=== PATIENT | male | born 2000 | race Caucasian/White ===

== ENCOUNTER 2020-08-16 02:57 | Inpatient (IN) | payer BC, OTHER ==
[~2020-08-16] VITALS: Ht 190.5 cm; Wt 83.5 kg
[2020-08-16] VITALS (25 sets, daily range): BP systolic 93–119; BP diastolic 35–58
--- NOTE | 2020-08-16 02:57 | NUR ---
TO ER BED 9 BIB EMS C/O POSSIBLE OVERDOSE. NARCAN 4MG IVP GIVEN BY EMS GEOLOGY PROFESSOR. (-) GAG REFLEX, ALTERED, UNRESPONSIVE, NO RESPONSE TO PAINFUL STIMULI. PLACE PT ON CARDIAC MONITORING, CONTINUOUS POX, O2 SAT NOTED AT 92% RA WITH (-) GAG REFLEX, PUPILS PERRLA. ER MD AT BEDSIDE TO EVAL PT WITH ORDER TO SET UP PT FOR INTUBATION. SL 18G TO LAC GEOLOGY PROFESSOR. WILL CARRY OUT ORDERS.
--- NOTE | 2020-08-16 03:14 | NUR ---
PT INTUBATED BY ER MD DAVID Yang WITH ET-TUBE 7.0 FR, 22CM AT THE LIP LINE, (+) COLOR CHANGE ON THE CO2 DETECTOR, BILATERAL EQUAL BREATH SOUND ON AUSCULTATION. RT TO PLACE PT ON VENT SETTING AC-14, TV-550, FIO2-80%, PEEP-5 PER ER ORDER. WILL CONTINUE TO MONITOR PT CLOSELY.
[2020-08-16] MEDS ORDERED: PROPOFOL 100 ML ONE ×2 (03:17→07:26)
[2020-08-16] MEDS ORDERED: SUCCINYLCHOLINE CHLORIDE 20 MG/ML VIAL IV ONE (03:30)
[2020-08-16] MEDS ORDERED: ETOMIDATE 2 MG/ML VIAL IV ONE (03:30)
[2020-08-16] MEDS ORDERED: IV NS 0.9% 1,000 ML BAG IV ONE (03:30)
[2020-08-16 03:36] LABS: BASOPHILS # (AUTO) 0.1 /CMM (0.0-0.2); BASOPHILS % (AUTO) 0.9 % (0.0-2.0); EOSINOPHILS % (AUTO) 0.4 % (0.0-6.0); HEMATOCRIT 40 % (39-51); HEMOGLOBIN 13.8 g/dL (13.5-17.5); LYMPHOCYTES # (AUTO) 1.9 /CMM (0.8-4.8); LYMPHOCYTES % (AUTO) 17.6 % (20.0-44.0); MEAN CORPUSCULAR HGB CONC 34 g/dl (31.0-36.0); MEAN CORPUSCULAR VOLUME 98 fL (80-96); MONOCYTES # (AUTO) 1.1 /CMM (0.1-1.30); MONOCYTES % (AUTO) 9.8 % (2.0-12.0); NEUTROPHILS # (AUTO) 7.7 /CMM (1.8-8.9); NEUTROPHILS % (AUTO) 71.3 % (43.0-81.0); PLATELET COUNT (AUTO) 236 /CMM (150-450); RED BLOOD CELL COUNT(AUTO) 4.14 MIL/uL (4.5-6.0); WHITE BLOOD COUNT (AUTO) 10.9 K/uL (4.3-11.0)
--- NOTE | 2020-08-16 03:56 | NUR ---
PT TOLERATING CURRENT VENT SETTING, NO ACUTE DISTRESS NOTED, RESP EVEN AND UNLABORED. WILL CONTINUE TO MONITOR PT CLOSELY.
[2020-08-16 04:14] LABS: APPEARANCE,URINE CLEAR (CLEAR); BILIRUBIN,URINE NEGATIVE (NEGATIVE); BLOOD, URINE LARGE Ery/uL (NEGATIVE); COLOR,URINE YELLOW (YELLOW); KETONES,URINE 40 (NEGATIVE); LEUKOCYTE ESTERASE ,URINE NEGATIVE (NEGATIVE); NITRITE, URINE NEGATIVE (NEGATIVE); PH,URINE 5.5 (5.0-8.0); PROTEIN,URINE NEGATIVE (NEGATIVE); UGLUCOSE NEGATIVE (NEGATIVE)
[2020-08-16 04:25] LABS: ABG BASE EXCESS -3.7 mmol/L; ABG OXYGEN SATURATION 99.5 % (92.0-98.5); ABG PCO2 32.2 mmHg (35.0-45.0); ABG PH 7.409 (7.350-7.450); ABG PO2 198.5 mmHg (75.0-100.0); AaDO2 338.1 mmHg; COHb 1.4 % (0.5-1.5); MetHb 0.3 % (0.0-1.5); O2Hb 97.8 % (94.0-97.0); PEEP,BG 5 cm H2O; SITE, ABG Left Radial; VT, ABG 550 mL
--- NOTE | 2020-08-16 04:31 | NUR ---
KEN NARANJO, GLOBAL COMPENSATION ANALYST OF REHAB PER GLOBAL COMPENSATION ANALYST PT'S NAME IS KATIA QUIGLEY
--- NOTE | 2020-08-16 04:54 | NUR ---
BROUGHT TO CT
[2020-08-16 05:14] LABS: ALANINE AMINOTRANSFERASE 483 U/L (12-78); ALBUMIN 4.4 g/dL (3.4-5.0); ALKALINE PHOSPHATASE 80 U/L (46-116); ASPARTATE AMINOTRANSFERASE 1191 U/L (15-37); BILIRUBIN,DIRECT 0.1 mg/dL (0.0-0.2); BILIRUBIN,TOTAL 0.7 mg/dL (0.2-1.0); CALCIUM, SERUM 8.9 mg/dL (8.5-10.1); CARBON DIOXIDE 21 mmol/L (21-32); CHLORIDE 94 mmol/L (98-107); CREATININE 1.2 mg/dL (0.6-1.3); GLUCOSE 104 mg/dL (74-106); POTASSIUM 3.5 mmol/L (3.5-5.1); SODIUM SERUM 135 mmol/L (136-145); TOTAL PROTEIN, SERUM 7.7 g/dL (6.4-8.2); UREA NITROGEN, BLOOD 15 mg/dL (7-18)
--- NOTE | 2020-08-16 05:19 | NUR ---
BROUGHT BACK FROM CT.
[2020-08-16 05:37] LABS: ACETAMINOPHEN < 2 ug/ml (10-30); ALCOHOL, BLOOD < 2 mg/dL (0-0); SALICYLATE 2.7 mg/dL (2.8-20.0)
[2020-08-16] MEDS ORDERED: PROPOFOL 100 ML IV PRN ×2 (07:00→20:30)
--- NOTE | 2020-08-16 07:48 | NUR ---
PATIENT'S TOLERATING CURRENT VENT SETTINGS. NEEDS ATTENDED. SOFT RESTRAINTS IN PLACED.
--- NOTE | 2020-08-16 08:16 | NUR ---
LAB CALLED COVID-19 NEG (-)
--- NOTE | 2020-08-16 08:40 | NUR ---
REPORT GIVEN TO CRISTIAN RN FOR SHARON.
--- NOTE | 2020-08-16 08:58 | NUR ---
PATIENT TRANSFERRED TO ROOM 253 VIA ACLS PROTOCOL. PATIENT ON CONTINUOUS DRIP OF PROPOFOL. VITALS STABLE.
[2020-08-16] MEDS ORDERED: ONDANSETRON HCL/PF 4 MG/2 ML VIAL IVP PRN (09:00)
[2020-08-16] MEDS ORDERED: Z GUARD REMEDY 2 OZ OINT TP PRN (09:00)
[2020-08-16] MEDS ORDERED: MAGNESIUM HYDROXIDE 30 ML UDC PO PRN (09:00)
[2020-08-16] MEDS ORDERED: MAG HYDROX/AL HYDROX/SIMETH 30 ML UDC PO PRN (09:00)
--- NOTE | 2020-08-16 09:00 | NUR ---
rn notes received patient from er coming in due to altered mental status. drug test positive of cannabis and amphetamine. orally [facility] er[facility]. patient agitated despite with ongoing Diprivan at 50mcg/kg/min. [place] [facility] [place] the monitor. assessment done and noted. made clean and comfortable in bed. restraints placed in. safety measures put in place. hob elevated to 30 degree. call light placed within reach will continue to monitor patient accordingly while awaiting admission orders
--- NOTE | 2020-08-16 09:18 | NUR ---
PER PIECE GOODS CLERK, PATIENT'S NAME IS SORAIDA MONTALVO : [address] ELEVATOR CONDUCTOR'S CONTACT INFO: [phone] KEN HOLDER
[2020-08-16] MEDS ORDERED: PROPOFOL 10MG/ML 50ML 50 ML IV PRN (09:30)
[2020-08-16 09:38] LABS: BASOPHILS # (AUTO) 0.1 /CMM (0.0-0.2); BASOPHILS % (AUTO) 0.8 % (0.0-2.0); EOSINOPHILS % (AUTO) 0.6 % (0.0-6.0); HEMATOCRIT 41 % (39-51); HEMOGLOBIN 13.9 g/dL (13.5-17.5); LYMPHOCYTES # (AUTO) 2.3 /CMM (0.8-4.8); LYMPHOCYTES % (AUTO) 17.4 % (20.0-44.0); MEAN CORPUSCULAR HGB CONC 34 g/dl (31.0-36.0); MEAN CORPUSCULAR VOLUME 98 fL (80-96); MONOCYTES # (AUTO) 1.4 /CMM (0.1-1.30); MONOCYTES % (AUTO) 10.7 % (2.0-12.0); NEUTROPHILS # (AUTO) 9.5 /CMM (1.8-8.9); NEUTROPHILS % (AUTO) 70.5 % (43.0-81.0); PLATELET COUNT (AUTO) 246 /CMM (150-450); WHITE BLOOD COUNT (AUTO) 13.5 K/uL (4.3-11.0)
[2020-08-16] MEDS: PROPOFOL 10MG/ML 50ML 50 ML IV PRN ×7 (09:55→19:23)
[2020-08-16] MEDS: IV NS 0.9% 1,000 ML IV PRN ×2 (09:55→18:36)
[2020-08-16 09:59] LABS: ALBUMIN 4.3 g/dL (3.4-5.0); BILIRUBIN,TOTAL 0.8 mg/dL (0.2-1.0); CALCIUM, SERUM 8.8 mg/dL (8.5-10.1); POTASSIUM 3.6 mmol/L (3.5-5.1); TOTAL PROTEIN, SERUM 7.7 g/dL (6.4-8.2)
--- NOTE | 2020-08-16 10:00 | NUR ---
rn notes Dr. Spence at bedside to see and examine patient. with orders " mag give propoofol to max dose to keep patient fully intubated". order noted and carried out
--- NOTE | 2020-08-16 10:42 | NUR ---
RT PATIENT REC'D TRANSFER FROM ER. PATIENT ORALLY INTUBATED ON [facility] VENT WITH ORDERED SETTINGS SEUN WELL. PATIENT SEDATED AND APPEARS COMFORTABLE. FIO2 TITRATED TO 50%. ALARMS CHECKED + AUDIBLE. YOUNGU BAG AT HOB. Addendum: 08/16/20 at 1652 by MIHAELA ROOT RT Amended: Links added.
[2020-08-16] MEDS: ENOXAPARIN SODIUM 40 MG/0.4 ML DISP.SYRIN SQ SCH (10:47)
[2020-08-16] MEDS ORDERED: LORAZEPAM INJ 2 MG/ML VIAL IV PRN (14:30)
--- NOTE | 2020-08-16 16:00 | NUR ---
rn notes patient noted with fever at 103, tylenol prn given vvia ngt. cooling measures rendered. will continue to monitor patient accordingly
--- NOTE | 2020-08-16 16:56 | NUR ---
rn notes informed Dr. Velazquez on troponin level from 0.713 t0 0.44. no new orders obtained at this time
--- NOTE | 2020-08-16 19:10 | NUR ---
RN OPENING NOTES RECEIVED PT ON BED SEDATED ON ETT/VENT SETTING ORDERED SPO2 94%, BEDSIDE MONITOR READS SINUS TACHY 115 PT HAVE OGT CLAMPED ON PLACED AND CHECKED, PT HAVE IVF # 18 ON LAC WITH ONGOING DIPRIVAN @ 100MCG/KG/MIN PER DOCTORS ORDER AND NS @ 125ML/HR INFUSING WELL, PT HAVE DORAN CATHETER DRAINING TEA COLORED URINE WITH SEDIMENTS, WITH BILATERAL WRIT RESTRAINTS CIRCULATION WAS CHECKED, SAFETY MEASURE OBSERVED BED ON LOWEST POSITION AND LOCKED SIDE RAILS UP WILL CONT TO MONITOR
--- NOTE | 2020-08-16 19:30 | NUR ---
rn notes endorsed for continuity of care. patient still sedated with diprivan at 100mcg/mg/min. not on any cardiorespiratory distress. tolerating current vent settings with good saturation level. blood pressure within normal range. endorsed to incoming shift regarding patient current temperature and to monitor closely
[2020-08-16] MEDS: ACETAMINOPHEN 325 MG TABLET PO PRN (19:41)
[2020-08-16] MEDS: PROPOFOL 100 ML IV PRN ×3 (20:18→23:44)
--- NOTE | 2020-08-16 22:11 | NUR ---
RN NOTES TEMP 101.4 COOLING MEASURE CONT, WILL CONT TO MONITOR
--- NOTE | 2020-08-16 22:15 | NUR ---
RN NOTES PT SPO2 GOES TO 86-88% SUCTIONING WAS DONE BUT NO CHANGES ON SPO2 RT MADE AWARE INCREASE FIO2 ON VENT TO 50% WILL CONT TO MONITOR
--- NOTE | 2020-08-16 22:44 | NUR ---
RN NOTES REPORTED TO ONCALL MS GALINA MELLO HEAD OF PRECISION TARGETING ABOUT THE TEMP OF THE PATIENT SHE MADE AN ORDER FOR CBC, BLOOD CULTURE AND LACTIC ACID, NOTED AND CARRIED OUT
--- NOTE | 2020-08-16 23:10 | NUR ---
RN NOTES TEMP RECHECKED 100.7 COOLING MEASURE CONT WILL CONT TO MONITOR THE PT
--- NOTE | 2020-08-16 23:46 | NUR ---
RN NOTES REPORTED TO RT THAT SPO2 OF THE PT IS ON 90-91% ONLY DESPITE SUCTIONING RT INCREASE PT FIO2 VENT SETTING TO 60% WILL CONT TO MONITOR THE PT
[2020-08-17] VITALS (41 sets, daily range): BP systolic 91–148; BP diastolic 34–66
[2020-08-17] MEDS: ACETAMINOPHEN 325 MG TABLET PO PRN ×2 (00:16→12:54)
[2020-08-17 00:22] LABS: BASOPHILS % (AUTO) 0.3 % (0.0-2.0); HEMATOCRIT 39 % (39-51); HEMOGLOBIN 13.5 g/dL (13.5-17.5); LYMPHOCYTES # (AUTO) 0.2 /CMM (0.8-4.8); LYMPHOCYTES % (AUTO) 2.5 % (20.0-44.0); MEAN CORPUSCULAR HGB CONC 34 g/dl (31.0-36.0); MEAN CORPUSCULAR VOLUME 97 fL (80-96); MONOCYTES # (AUTO) 0.8 /CMM (0.1-1.30); MONOCYTES % (AUTO) 8.5 % (2.0-12.0); NEUTROPHILS # (AUTO) 8.3 /CMM (1.8-8.9); NEUTROPHILS % (AUTO) 88.7 % (43.0-81.0); PLATELET COUNT (AUTO) 219 /CMM (150-450); RED BLOOD CELL COUNT(AUTO) 4.04 MIL/uL (4.5-6.0); WHITE BLOOD COUNT (AUTO) 9.4 K/uL (4.3-11.0)
[2020-08-17] MEDS: PROPOFOL 100 ML IV PRN ×13 (01:30→23:26)
--- NOTE | 2020-08-17 01:41 | NUR ---
RN NOTES TEMP 100.3 SPO2 94% CONT COOLING MEASURE WILL CONT TO MONITOR THE PT
[2020-08-17] MEDS: IV NS 0.9% 1,000 ML IV PRN ×3 (02:09→20:07)
--- NOTE | 2020-08-17 02:55 | NUR ---
RN NOTES TEMP 99.4 SPO2 95% WILL CONT COOLING MEASURE WILL CONT TO MONITOR THE PT
[2020-08-17 04:43] LABS: BASOPHILS % (AUTO) 0.2 % (0.0-2.0); EOSINOPHILS % (AUTO) 0.1 % (0.0-6.0); HEMATOCRIT 39 % (39-51); HEMOGLOBIN 13.4 g/dL (13.5-17.5); LYMPHOCYTES # (AUTO) 0.4 /CMM (0.8-4.8); MEAN CORPUSCULAR HGB CONC 34 g/dl (31.0-36.0); MEAN CORPUSCULAR VOLUME 98 fL (80-96); MONOCYTES # (AUTO) 0.7 /CMM (0.1-1.30); MONOCYTES % (AUTO) 8.7 % (2.0-12.0); PLATELET COUNT (AUTO) 221 /CMM (150-450); RED BLOOD CELL COUNT(AUTO) 3.97 MIL/uL (4.5-6.0); WHITE BLOOD COUNT (AUTO) 8.1 K/uL (4.3-11.0)
[2020-08-17 05:41] LABS: ALBUMIN 3.4 g/dL (3.4-5.0); BILIRUBIN,DIRECT 0.2 mg/dL (0.0-0.2); BILIRUBIN,TOTAL 0.7 mg/dL (0.2-1.0); CALCIUM, SERUM 8.5 mg/dL (8.5-10.1); CREATININE 0.9 mg/dL (0.6-1.3); MAGNESIUM 2.2 mg/dL (1.8-2.4); PHOSPHORUS 4.1 mg/dL (2.5-4.9); POTASSIUM 3.7 mmol/L (3.5-5.1); TOTAL PROTEIN, SERUM 6.5 g/dL (6.4-8.2)
--- NOTE | 2020-08-17 06:11 | NUR ---
RN NOTES PT BP DROP AFTER WE CLEAN HIM REPORTED TO HONEY MELLO IRB COMPLIANCE COORDINATOR WITH ORDER NS 500ML IV BOLUS X1 NOW THEN LEVOPHED 8MG FOR SBP<80 TITRATE PER PROTOCOL NOTED AND CARRIED OUT
[2020-08-17] MEDS ORDERED: NOREPINEPHRINE 8 MG in IV NS 0.9% 242 ML IV PRN (06:30)
[2020-08-17] MEDS ORDERED: IV NS 0.9% 500 ML IV ONE (06:30)
--- NOTE | 2020-08-17 07:17 | NUR ---
RN CLOSING NOTES PT ON BED SEDATED STILL ON ETT/VENT SETTING ORDERED CURRENT FIO2 IS 60% SPO2 94% TELE MONITOR READS SINUS TACHY 110, LATEST TEMP IS 98.6 NO OTHER CHANGES ON CONDITION NOTED, SAFETY MEASURE MAINTAINED BED ON LOWEST POSITION AND LOCKED ALL NEEDS ATTENDED WILL ENDORSED TO AM SHIFT NURSE
[2020-08-17] MEDS: LORAZEPAM INJ 2 MG/ML VIAL IV PRN ×2 (09:08→10:04)
[2020-08-17] MEDS: ENOXAPARIN SODIUM 40 MG/0.4 ML DISP.SYRIN SQ SCH (09:25)
--- NOTE | 2020-08-17 09:43 | NUR ---
RN NOTE PATIENT SATURATING AT 88%, TACHY WITH HR AT 145, PATIENT IS AGITATED AND FIGHTING THE VENT. DR CUMMINS NOTIFIED, ORDERED TO START FENTANLY DRIP ON TOP OF THE DIPRIVAN DRIP THAT IS RUNNING AT 100MCG/KG/HR. ATIVAN 2MG PRN WAS GIVEN BY CHARGE NURSE EARLIER PER MD ORDER.
[2020-08-17] MEDS ORDERED: FENTANYL CITRAT IV 2,500 MCG in IV NS 0.9% 200 ML IV PRN (10:00)
--- NOTE | 2020-08-17 10:10 | NUR ---
RN NOTE PATIENT REQUIRED MORE SEDATION. FENTANYL IS NOT YET AVAILABLE. PER DR. CUMMINS, GIVEN ANOTHER 2MG OF ATIVAN. ORDERS FOLLOWED. WAITING ON PHARMACY TO BRING UP THE FENTANYL WILL START SOON AVAILABLE. SAFETY MAINTAINED, CALL LIGHT WITHIN REACH, WILL MONITOR CLOSELY.
[2020-08-17] MEDS: PIPERACILLIN /TAZOBACTAM 4.5 G in IV D5W 50 ML IV SCH ×3 (11:01→23:26)
[2020-08-17] MEDS: VANCOMYCIN 1.5 GM in IV D5W 500 ML IV SCH ×2 (12:09→18:55)
[2020-08-17 14:02] LABS: ABG BASE EXCESS 0.6 mmol/L; ABG OXYGEN SATURATION 94.6 % (92.0-98.5); ABG PCO2 47.3 mmHg (35.0-45.0); ABG PH 7.366 (7.350-7.450); ABG PO2 75.6 mmHg (75.0-100.0); AaDO2 445.1 mmHg; COHb 0.3 % (0.5-1.5); MetHb 0.2 % (0.0-1.5); O2Hb 94.1 % (94.0-97.0); SITE, ABG Right Radial
--- NOTE | 2020-08-17 17:58 | NUR ---
RN NOTE SPOKE TO PHARMACY REGARDING THE 1900 VANCOMYCIN DOSE. MEDICATION IS NOT YET AVAILABLE, DOUBLE CHECKED WITH THE PHARMACY THAT THIS DOSE HAS TO BE GIVEN. SAFETY MAINTAINED, CALL LIGHT WITHIN REACH, WILL CONTINUE TO MONITOR CLOSELY.
--- NOTE | 2020-08-17 18:47 | NUR ---
RN CLOSING NOTE NO ACUTE CHANGES TO PATIENT CONDITION DURING MY SHIFT. REMAINED ON MECHANICAL VENT WITH SETTINGS TOLERATING WELL. PEEP WAS INCREASED TO 8, FIO2 AT 70%. CURRENTLY SEDATED ON DIPRIVAN AT 100MCG AND FENTANYL AT 40MCG. PATIENT IS COMFORTABLY SEDATED, TOLERATING VENT WELL. OGT REMAINED CLAMPED, DORAN CATHETER IS IN PLACE, 600ML WAS DRAINED. TYLENOL WAS GIVEN EARLIER FOR TEMP OF 101, WAS EFFECTIVE, CURRENTLY THE TEMPERATURE IS AT 98.8. SAFETY WAS MAINTAINED, CALL LIGHT WITHIN REACH, WILL ENDORSE TO PM NURSE FOR CONTINUITY OF CARE.
--- NOTE | 2020-08-17 19:20 | NUR ---
RN OPENING NOTES RECEIVED PT ON BED SEDATED ON ETT/VENT SETTING ORDERED SPO2 97%, BEDSIDE MONITOR READS SINUS TACHY 115 PT HAVE OGT CLAMPED ON PLACED AND CHECKED, PT HAVE IVF # 18 ON LAC WITH ONGOING DIPRIVAN @ 100MCG/KG/MIN PER DOCTORS ORDER AND FENTANYL @ 4ML/HR FOR SEDATION, IV# 2019 AT RIGHT WRIST WITH NS @ 125ML/HR INFUSING WELL, PT HAVE DORAN CATHETER DRAINING TEA COLORED URINE WITH SEDIMENTS,CURRENT TEMP IS 98.6, WITH BILATERAL WRIST RESTRAINTS CIRCULATION WAS CHECKED, SAFETY MEASURE OBSERVED BED ON LOWEST POSITION AND LOCKED SIDE RAILS UP WILL CONT TO MONITOR
[2020-08-17] MEDS: FENTANYL CITRATE IV 1,250 MCG in IV NS 0.9% 225 ML IV PRN (21:14)
[2020-08-18] VITALS (65 sets, daily range): BP systolic 86–121; BP diastolic 30–56
[2020-08-18] MEDS: PROPOFOL 100 ML IV PRN ×15 (01:00→23:29)
[2020-08-18] MEDS: VANCOMYCIN 1.5 GM in IV D5W 500 ML IV SCH ×2 (03:00→13:45)
[2020-08-18] MEDS: IV NS 0.9% 1,000 ML IV PRN ×2 (04:00→12:11)
[2020-08-18 05:10] LABS: CALCIUM, SERUM 8.3 mg/dL (8.5-10.1); CREATININE 0.9 mg/dL (0.6-1.3); POTASSIUM 4.3 mmol/L (3.5-5.1)
[2020-08-18] MEDS: PIPERACILLIN /TAZOBACTAM 4.5 G in IV D5W 50 ML IV SCH ×4 (06:10→23:29)
--- NOTE | 2020-08-18 07:30 | NUR ---
RN OPENING NOTES RECEIVED PT ON BED SEDATED ON ETT/VENT SETTING ORDERED SPO2 97%, BEDSIDE MONITOR READS SINUS TACHY 112 PT HAVE NG WHICH IS CLAMPED ON PLACED AND CHECKED WITH THE SECOND NURSE, PT HAVE IVF # 18 ON LAC WITH ONGOING DIPRIVAN @ 100MCG/KG/MIN PER DOCTORS ORDER AND FENTANYL @ 8ML/HR FOR SEDATION, IV# 2020 AT RIGHT WRIST WITH NS @ 125ML/HR INFUSING WELL, PT HAVE DORAN CATHETER DRAINING DARK URINE COLOR CURRENT TEMP IS 98.6, WITH BILATERAL WRIST RESTRAINTS CIRCULATION WAS CHECKED, SAFETY MEASURE ARE IMPLEMENTED BY HOSPITAL POLICY. BED IS ON LOWEST POSITION AND LOCKED SIDE RAILS UP X2. WILL CONT TO MONITOR FOR SHARON
--- NOTE | 2020-08-18 07:36 | NUR ---
RN CLOSING NOTES PT ON BED SEDATED STILL ON ETT/VENT SETTING ORDERED CURRENT FIO2 IS 70% SPO2 94% TELE MONITOR READS SINUS TACHY 110, LATEST TEMP IS 98.1 NO OTHER CHANGES ON CONDITION NOTED, SAFETY MEASURE MAINTAINED BED ON LOWEST POSITION AND LOCKED ALL NEEDS ATTENDED WILL ENDORSED TO AM SHIFT NURSE
--- NOTE | 2020-08-18 08:04 | NUR ---
RN NOTES ASKED DR CUMMINS IF HE WANTS TO PUT PT ON SEDATION VACATION HE SAID NO.
--- NOTE | 2020-08-18 08:08 | NUR ---
RN NOTES LELA MITCHELL PUT HIM ON FIO2 60%
[2020-08-18 08:21] LABS: ALBUMIN 2.4 g/dL (3.4-5.0); BILIRUBIN,TOTAL 0.5 mg/dL (0.2-1.0); CALCIUM, SERUM 8.5 mg/dL (8.5-10.1); CREATININE 0.9 mg/dL (0.6-1.3); POTASSIUM 4.5 mmol/L (3.5-5.1)
[2020-08-18] MEDS: ENOXAPARIN SODIUM 40 MG/0.4 ML DISP.SYRIN SQ SCH (08:26)
--- NOTE | 2020-08-18 09:00 | NUR ---
et-tube advanced to 27cm at lip per Dr. Spence
--- NOTE | 2020-08-18 10:15 | NUR ---
RN NOTES RT LELA ADVANCED ET TUBE TO 27cm PER DR MARIA G CROEWLL
--- NOTE | 2020-08-18 10:42 | NUR ---
RN NOTES PT IS RUNNING FEVER 100.1 ORDER THE LIGUID FORM OF TYLENOL BECAUSE PT HAS NG TUBE
[2020-08-18] MEDS: ACETAMINOPHEN 650 MG/20.3 ML UDC NG PRN ×2 (10:59→17:40)
[2020-08-18] MEDS: LORAZEPAM INJ 2 MG/ML VIAL IV PRN (10:59)
--- NOTE | 2020-08-18 11:09 | NUR ---
RN NOTES SARAH BETH TROUGH IS STILL PENDING WAITING TO GET RESULT TO GIVE SARAH BETH
--- NOTE | 2020-08-18 12:06 | NUR ---
RN NOTES STILL WAITING FOR VANCO TROUGH RESULTS CALLED SAID ANOTHER 40 MIN
--- NOTE | 2020-08-18 12:50 | NUR ---
RN NOTES APPLIED ICE, GAVE LIQUID TYLENOL, AND ATIVAN. TEM NOW IS 99.0 HR FROM 121 DROPPED TO 116 AND DROPPED FROM 100.1 TO 99.9
[2020-08-18] MEDS: FENTANYL CITRATE IV 1,250 MCG in IV NS 0.9% 225 ML IV PRN ×2 (13:25→20:48)
--- NOTE | 2020-08-18 17:43 | NUR ---
RN NOTES PT IS RUNNINF FEVER OF 100.1. GAVE LIQUID TYLENOL AND ICE BAGS UNDERNEATH ARMS AND GROIN
[2020-08-18] MEDS: VANCOMYCIN 1.25 GM in IV D5W 250 ML IV SCH (18:10)
--- NOTE | 2020-08-18 19:29 | NUR ---
RN CLOSING NOTE NO ACUTE CHANGES TO PATIENT CONDITION DURING MY SHIFT. pt ON MECHANICAL VENT WITH SETTINGS TOLERATING WELL. PEEP WAS INCREASED TO 8, FIO2 AT 60%. CURRENTLY SEDATED ON DIPRIVAN AT 100MCG AND FENTANYL AT 40MCG. PATIENT IS COMFORTABLY SEDATED, TOLERATING VENT WELL. OGT REMAINED CLAMPED, DORAN CATHETER IS IN PLACE, 1450ML WAS DRAINED. TYLENOL WAS GIVEN EARLIER FOR TEMP OF 101, WAS EFFECTIVE, NOW THE TEMP IS 100.0 TYLENOL ,ICE, SAFETY WAS MAINTAINED, CALL LIGHT WITHIN REACH, WILL ENDORSE TO PM NURSE FOR CONTINUITY OF CARE.
--- NOTE | 2020-08-18 19:30 | NUR ---
WOOD HEEL FITTER MACHINE RCD PT W/DX TOXIC ENCEPHALOPATHY. PT SEDATED ON PROPOFOL 100 MCG/KG/MIN AND FENTANYL 8 ML/HR. ST ON MONITOR. ELEVATED TEMP; COOLING MEASURES INITIATED BY PREVIOUS SHIFT. OGT CLAMPED. NO SKIN BREAKDOWN NOTED. BLSW RESTRAINTS REMAIN IN PLACE. DORAN CATH IN PLACE WITH DARK SEDIMENT URINE. NS @ 125 ML/HR.
[2020-08-19] VITALS (46 sets, daily range): BP systolic 101–134; BP diastolic 38–88
[2020-08-19] MEDS: PROPOFOL 100 ML IV PRN ×10 (01:35→22:59)
--- NOTE | 2020-08-19 02:06 | NUR ---
RT NOTE Pt rec'd orally intubated via ETT sz #7.5 secured @ 27cm at the lipline. Pt on [facility] vent on AC mode settings as charted. Pt shows no signs of resp distress or sob. Pt sx'd for thin amount of clear secretions. Alarms are set and audible. Vent plugged into red outlet. ambu bag bedside. Will continue to monitor closely. Addendum: 08/19/20 at 0207 by CURT LOMAX RT Amended: Links added.
[2020-08-19] MEDS: IV NS 0.9% 1,000 ML IV PRN ×3 (03:15→22:59)
[2020-08-19] MEDS: IV NS 0.9% 250 ML IV PRN (04:00)
[2020-08-19 04:50] LABS: CALCIUM, SERUM 8.9 mg/dL (8.5-10.1); CREATININE 0.8 mg/dL (0.6-1.3); POTASSIUM 3.6 mmol/L (3.5-5.1)
[2020-08-19] MEDS: PIPERACILLIN /TAZOBACTAM 4.5 G in IV D5W 50 ML IV SCH ×4 (05:10→23:00)
[2020-08-19] MEDS: VANCOMYCIN 1.25 GM in IV D5W 250 ML IV SCH ×6 (05:10→23:59)
--- NOTE | 2020-08-19 06:47 | NUR ---
ESTHETICS INSTRUCTOR PT REMAINED ON PROPOFOL 100 MCG/KG/MIN AND FENTANYL 8 ML/HR UNABLE TO TITRATE DOWN PT BECOMES TACHYPNEIC.
--- NOTE | 2020-08-19 07:56 | NUR ---
WOUND CARE CONSULT: PT NOT TURNED FOR SKIN ASSESSMENT AT THIS TIME DUE TO VENTILATOR WEANING PER RN. REVIEWED CHART, NURSING DOCUMENTATION AND SPOKE WITH NURSING STAFF. RECOMMENDATIONS MADE FOR SKIN PROTECTION. DISCUSSED WITH NURSING STAFF. WILL SEE PRN. ORDOÑEZ IN AGREEMENT WITH PLAN OF CARE.
--- NOTE | 2020-08-19 08:00 | NUR ---
curriculum and instruction director received pt in bed sedated on propofol and fentanyl settings noticed, pt intubated vent settings noted safety measures taken alarms checked, iv access patent folly patent, will hold sedation meds as pt will be on simv mode around 11am, restraints released check for circulation and skin conditions provided PROM, reapplied restraints safety measures taken call light w/ in reach will cont to monitor.
[2020-08-19] MEDS: ENOXAPARIN SODIUM 40 MG/0.4 ML DISP.SYRIN SQ SCH (08:24)
--- NOTE | 2020-08-19 10:06 | NUR ---
Gatito Carvajal Sensor Operator from Rehab provided family contact Mother Wandy . SW to inform nurse following the patient.
--- NOTE | 2020-08-19 10:55 | NUR ---
agriculture internship held fentanyl and propofol as ordered see it pt wakes up to put him simv mode
--- NOTE | 2020-08-19 11:00 | NUR ---
pedicurist p/dr. shoemaker to hold sedation meds no titration needed
--- NOTE | 2020-08-19 11:30 | NUR ---
curriculum manager pt is restless most of the time, moving around bed unable to keep pillows under feet to off load, pt keeps kicking pillows out unknowingly, will keep checking to off load extremities.
--- NOTE | 2020-08-19 15:30 | NUR ---
agricultural extension educator p/dr. shoemaker ok to resume propofol max 100mcg/kg/min to keep to calm and sedated no fentanyl at this time.
[2020-08-19] MEDS: ACETAMINOPHEN 650 MG/20.3 ML UDC NG PRN (17:10)
[2020-08-19] MEDS: LORAZEPAM INJ 2 MG/ML VIAL IV PRN (19:46)
--- NOTE | 2020-08-19 19:46 | NUR ---
SPECIAL ASSEMBLIES SUPERVISOR PT WAKING AND FIGHTING VENT POST ANABELLA CARE; ADMINISTERED ATIVAN AT THIS TIME.
--- NOTE | 2020-08-19 20:00 | NUR ---
RECONCILIATION MACHINE OPERATOR RCD PT W/DX TOXIC ENCEPHALOPATHY. PT SEDATED ON PROPOFOL 60 MCG/KG/MIN ML/HR. ST ON MONITOR. ELEVATED TEMP; COOLING MEASURES INITIATED BY PREVIOUS SHIFT. OGT CLAMPED. LEFT HEEL REDNESS AND SACRAL DTI, APPLIED MEPILEX. BLSW RESTRAINTS REMAIN IN PLACE. ATTEMPTING TO WEAN PROPOFOL. DORAN CATH IN PLACE WITH DARK SEDIMENT URINE. NS @ 125 ML/HR. PT HAD LARGE LIQUID BM. RENDERED ANABELLA AND ORAL CARE.
[2020-08-20] VITALS (28 sets, daily range): BP systolic 117–139; BP diastolic 41–72
--- NOTE | 2020-08-20 | NUR ---
LEAD COOK PT NOTED WITH INCREASE TEMP 100; INITIATED COOLING MEASURES AND ADMINISTERED TYLENOL. CONTINUE TO MONITOR.
[2020-08-20] MEDS: LORAZEPAM INJ 2 MG/ML VIAL IV PRN (01:24)
[2020-08-20] MEDS: PROPOFOL 100 ML IV PRN ×10 (01:31→22:09)
--- NOTE | 2020-08-20 02:36 | NUR ---
RT NOTE Pt rec'd orally intubated via ETT sz #7.5 secured @ 27cm at the lipline. Pt on [facility] vent on AC mode settings as charted. Pt shows no signs of resp distress or sob. Pt sx'd for mod amount of yellow secretions. Alarms are set and audible. Vent plugged into red outlet. ambu bag bedside. Will continue to monitor closely. Addendum: 08/20/20 at 0237 by CURT LOMAX RT Amended: Links added.
[2020-08-20] MEDS: IV NS 0.9% 250 ML IV PRN (04:00)
[2020-08-20] MEDS: PIPERACILLIN /TAZOBACTAM 4.5 G in IV D5W 50 ML IV SCH ×4 (05:00→23:05)
[2020-08-20] MEDS: VANCOMYCIN 1.25 GM in IV D5W 250 ML IV SCH ×3 (05:00→18:26)
--- NOTE | 2020-08-20 05:00 | NUR ---
MEAT BUTCHER PT APPEARS COMFORTABLE; DIPRIVAN DECREASED TO 55 MCG/KG/MIN. CONTINUE TO MONITOR.
[2020-08-20 05:40] LABS: CALCIUM, SERUM 8.7 mg/dL (8.5-10.1); CREATININE 0.7 mg/dL (0.6-1.3)
[2020-08-20 05:42] LABS: POTASSIUM 2.6 mmol/L (3.5-5.1)
--- NOTE | 2020-08-20 06:00 | NUR ---
PATROL DRIVER PT NOTED WAKING UP AND WITH INCREASED RESPIRATIONS. INCREASED DIPRIVAN TO 60 MCG/KG/MIN
[2020-08-20] MEDS: POTASSIUM CL. PREMIX PERIPHER. 50 ML IV SCH ×2 (07:49→08:57)
--- NOTE | 2020-08-20 08:20 | NUR ---
received pt from facilities officer, sedated on Diprivan at 60mcg, SR, intubated, 100% fio2, sat well, OG clamped, NPO, f/c good output, v/s stable, no pain, pt turned and repositioned.
[2020-08-20] MEDS: IV NS 0.9% 1,000 ML IV PRN ×2 (08:27→16:03)
[2020-08-20] MEDS: POTASSIUM CHLORIDE 20 MEQ POWDER PACKET NG SCH ×5 (08:55→13:05)
[2020-08-20] MEDS: ENOXAPARIN SODIUM 40 MG/0.4 ML DISP.SYRIN SQ SCH (08:57)
[2020-08-20 10:14] LABS: MAGNESIUM 2.1 mg/dL (1.8-2.4); PHOSPHORUS 2.3 mg/dL (2.5-4.9)
[2020-08-20 13:20] LABS: CREATINE KINASE, TOTAL 1850 U/L (39-308)
[2020-08-20 13:34] LABS: LIPASE 67 U/L (73-393)
[2020-08-20] MEDS ORDERED: Sodium Phosphate 15 MMOL in IV NS 0.9% 245 ML IV ONE (16:00)
--- NOTE | 2020-08-20 16:20 | NUR ---
pt is resting in the bed, sedated on Diprivan at 60mcg, ST, on the vent, sat well, OG clamped, rectal tube diarrhea, f/c good output, v/s stable, no pain, pt cleaned, changed and repositioned q2hrs.
[2020-08-20] MEDS: ACETAMINOPHEN 650 MG/20.3 ML UDC NG PRN ×2 (16:36)
--- NOTE | 2020-08-20 19:10 | NUR ---
ZIGZAG STITCHER NOTE RECEIVED PATIENT IN BED RESTING, WITH HOB ELEVATED. PATIENT IS 20 Y/O MALE WITH DX OF TOXIC ENCEPHALOPATHY. FULL CODE. NPO STATUS. PATIENT IS SEDATED, ON DIPRIVAN RUNNING AT 70 MCG/KG/MIN. PATIENT IS VENT DEPENDANT. ETT TUBE IS ON 27 CM AT LIP LEVEL. FIO2 IS 80%, PEEP 5. BREATHING IS EVEN AND UNLABORED, NO SOB NOTED AT THIS TIME. PATIENT IS RESPONSIVE TO LIGHT PAIN. NOTED WITH RECTAL TEMPERATURE OF 99.6 F. ON BILATERAL SOFT WRIST RESTRAINTS. CAPILLARY REFILL < 3. PATIENT HAS OGT, 60 CM AT LIP LEVEL. OGT IS CLAMPED. PATIENT IS ON FLEXISEAL. STOOL IS BROWN AND LIQUID IN CONSISTENCY. PATIENT IS ON DORAN CATH, URINE IS CLOUDY, TEA COLOR WITH SEDIMENTS. IV SITES ON RIGHT WRIST AND LEFT FOREARM ARE CLEAN, DRY, AND PATENT. CURRENTLY VANCOMYCIN AND SODIUM PHOSPATE RUNNING PER AM SHIFT RN. ON IV HYDRATION, NS @ 125 ML/HR. IN NO APPARENT DISTRESS NOTED AT THIS TIME. BED IS LOWERED AND LOCKED FOR SAFETY. WILL CONTINUE TO MONITOR.
--- NOTE | 2020-08-20 20:44 | NUR ---
RECEIVED PT INTUBATED 7.0 ETT SECURED AT 27CM LIP LINE. NO RESP DISTRESS NOTED. SMLL AMT OF SECRETIONS. VENT ALARMS SET AND AUDIBLE. AMBU BAG AT BEDSIDE. WILL CONTINUE TO MONITOR. Addendum: 08/20/20 at 204 by CHASITY JOHNS RT Amended: Links added.
[2020-08-21] VITALS (28 sets, daily range): BP systolic 109–151; BP diastolic 55–99
[2020-08-21] MEDS: VANCOMYCIN 1.25 GM in IV D5W 250 ML IV SCH ×5 (00:05→23:59)
[2020-08-21] MEDS: ACETAMINOPHEN 650 MG/20.3 ML UDC NG PRN ×2 (00:05→06:16)
[2020-08-21] MEDS: PROPOFOL 100 ML IV PRN ×5 (00:06→08:24)
[2020-08-21] MEDS: IV NS 0.9% 1,000 ML IV PRN ×3 (00:30→21:52)
--- NOTE | 2020-08-21 01:00 | NUR ---
FOOT WORKER NOTE PATIENT IS RESTING COMFORTABLY, NO APPARENT DISTRESS AT THIS TIME. WILL CONTINUE TO MONITOR.
[2020-08-21] MEDS: PIPERACILLIN /TAZOBACTAM 4.5 G in IV D5W 50 ML IV SCH ×4 (05:03→23:25)
[2020-08-21 05:21] LABS: BASOPHILS % (AUTO) 0.2 % (0.0-2.0); EOSINOPHILS % (AUTO) 4.3 % (0.0-6.0); HEMATOCRIT 34 % (39-51); HEMOGLOBIN 11.4 g/dL (13.5-17.5); LYMPHOCYTES # (AUTO) 0.7 /CMM (0.8-4.8); LYMPHOCYTES % (AUTO) 5.7 % (20.0-44.0); MEAN CORPUSCULAR HGB CONC 34 g/dl (31.0-36.0); MEAN CORPUSCULAR VOLUME 97 fL (80-96); MONOCYTES # (AUTO) 2.4 /CMM (0.1-1.30); MONOCYTES % (AUTO) 20.2 % (2.0-12.0); NEUTROPHILS # (AUTO) 8.4 /CMM (1.8-8.9); NEUTROPHILS % (AUTO) 69.6 % (43.0-81.0); PLATELET COUNT (AUTO) 323 /CMM (150-450); RED BLOOD CELL COUNT(AUTO) 3.46 MIL/uL (4.5-6.0); WHITE BLOOD COUNT (AUTO) 12.1 K/uL (4.3-11.0)
[2020-08-21 05:37] LABS: ALBUMIN 1.7 g/dL (3.4-5.0); BILIRUBIN,TOTAL 0.4 mg/dL (0.2-1.0); CALCIUM, SERUM 8.5 mg/dL (8.5-10.1); CREATININE 0.6 mg/dL (0.6-1.3); MAGNESIUM 2.1 mg/dL (1.8-2.4); PHOSPHORUS 2.8 mg/dL (2.5-4.9); TOTAL PROTEIN, SERUM 5.9 g/dL (6.4-8.2)
[2020-08-21 06:06] LABS: BAND % (MANUAL) 4 % (0.0-5.0); LYMPHOCYTES % (MANUAL) 8 % (16-48); METAMYELOCYTES % 3 % (0-0); MONOCYTES % (MANUAL) 13 % (0-11.0); NEUTROPHILS % (MANUAL) 71 (42-76); PROMYELOCYTES % 1 % (0-0)
--- NOTE | 2020-08-21 07:15 | NUR ---
SERVICE PARTS COORDINATOR NOTE PATIENT REMAINED STABLE THROUGHOUT THE NIGHT. NO SIGNIFICANT CHANGES NOTED. ALL DUE MEDS GIVEN ORDERED AND TOLERATED WELL. PATIENT IS KEPT CLEAN, DRY, AND COMFORTABLE. REPOSITIONED Q2H. ENDORSED TO AM SHIFT RN FOR CONTINUATION OF CARE.
--- NOTE | 2020-08-21 07:30 | NUR ---
rn notes received patient sedated with diprivan at 90mcg/kg/min. orally intubated, tolerating current vent settings. sats are within normal range. ogt in place, placement verified by auscultation. sinus rhythm on the monitor with hr on the 90s. no indication of pain noted at this time. with temperature running at 99 at this time, will initiate cooling measures. iv line on the r wrist out, will reinsert a new one. iv line on the left forearm in place and uintact with ongoing ns at 125cc/hr. bilateral soft restraints in place, remove and replaced to assess skin integrity, no skin issue noted at this time. hob kept elevated. safety measures observed and maintained. call light placed within reach. will continue to monitor patient accordingly
[2020-08-21] MEDS: ENOXAPARIN SODIUM 40 MG/0.4 ML DISP.SYRIN SQ SCH (08:24)
[2020-08-21] MEDS ORDERED: POTASSIUM CHLORIDE 20 MEQ TAB.PRT.SR PO ONE (09:00)
[2020-08-21 09:09] LABS: ABG BASE EXCESS 5.4 mmol/L; ABG OXYGEN SATURATION 97.3 % (92.0-98.5); ABG PCO2 39.3 mmHg (35.0-45.0); ABG PH 7.488 (7.350-7.450); ABG PO2 91.4 mmHg (75.0-100.0); AaDO2 220.9 mmHg; COHb 0.3 % (0.5-1.5); MetHb 0.1 % (0.0-1.5); O2Hb 96.9 % (94.0-97.0); SITE, ABG Right Radial
[2020-08-21] MEDS ORDERED: MIDAZOLAM HCL 200 MG in IV NS 0.9% 60 ML IV PRN (09:30)
[2020-08-21] MEDS: PRECEDEX 400 MCG/100 ML BOTTLE 100 ML IV PRN ×5 (11:07→23:25)
[2020-08-21] MEDS: MIDAZOLAM HCL 100 MG in IV NS 0.9% 80 ML IV PRN (12:15)
[2020-08-21] MEDS: FENTANYL CITRATE IV 1,250 MCG in IV NS 0.9% 225 ML IV PRN ×3 (12:34→21:01)
[2020-08-21] MEDS: IPRATROPIUM NEB FS 0.5 MG/2.5 ML AMPUL.NEB NEB SCH ×2 (14:22→20:01)
[2020-08-21] MEDS: ALBUTEROL HALF STRENGTH 1.25 MG/3 ML VIAL.NEB NEB SCH ×2 (14:22→20:02)
[2020-08-21] MEDS ORDERED: MORPHINE SULFATE INJ 4 MG/ML DISP.SYRIN IV PRN ×2 (15:00→15:30)
[2020-08-21] MEDS: LORAZEPAM INJ 2 MG/ML VIAL IV PRN ×3 (15:53→22:27)
--- NOTE | 2020-08-21 17:51 | NUR ---
RT PATIENT REMAINS ORALLY INTUBATED ON [facility] VENT WITH ORDERED SETTINGS SEUN WELL. ALARMS CHECKED + AUDIBLE. AMBU BAG AT [facility]. PATIENT SEDATED AND IN NO RESP DISTRESS. Addendum: 08/21/20 at 1751 by MIHAELA ROOT RT Amended: Links added.
--- NOTE | 2020-08-21 19:00 | NUR ---
RN NOTES ENDORSED FOR CONTINUITY OF CARE STILL SEDATED WITH FENTANYL AT 2MCG/KG/HR, PRECEDEX AT 1.5MCG/KG/MIN AND VERSED AT 7MG/HR. NO SIGNIFIVCANT CHANGES OF CONDITION FOR THE ENTIRE SHIFT. ALL NURSING NEEDS ATTENDED AND MET. SAEFTY MEASURES IN PLACE . CALL LIGHT WITHIN REACH
[2020-08-21] MEDS: IV NS 0.9% 250 ML IV PRN (23:25)
[2020-08-22] VITALS (24 sets, daily range): BP systolic 88–128; BP diastolic 41–71
[2020-08-22] MEDS: MIDAZOLAM HCL 100 MG in IV NS 0.9% 80 ML IV PRN ×4 (00:41→23:15)
[2020-08-22] MEDS: IPRATROPIUM NEB FS 0.5 MG/2.5 ML AMPUL.NEB NEB SCH ×4 (01:30→19:23)
[2020-08-22] MEDS: ALBUTEROL HALF STRENGTH 1.25 MG/3 ML VIAL.NEB NEB SCH ×4 (01:30→19:23)
[2020-08-22] MEDS: PRECEDEX 400 MCG/100 ML BOTTLE 100 ML IV PRN ×9 (01:59→23:00)
[2020-08-22] MEDS: LORAZEPAM INJ 2 MG/ML VIAL IV PRN ×4 (02:48→20:50)
[2020-08-22] MEDS: FENTANYL CITRATE IV 1,250 MCG in IV NS 0.9% 225 ML IV PRN (03:03)
--- NOTE | 2020-08-22 04:40 | NUR ---
SEARCH ADVERTISING STRATEGIST PT W/INTERMITTENT EPISODES OF AGITATION; ATIVAN GIVEN ORDERED. CONTINUE TO MONITOR.
[2020-08-22] MEDS: IV NS 0.9% 1,000 ML IV PRN ×3 (04:59→15:17)
[2020-08-22] MEDS: PIPERACILLIN /TAZOBACTAM 4.5 G in IV D5W 50 ML IV SCH ×3 (05:00→17:50)
[2020-08-22 05:23] LABS: CALCIUM, SERUM 8.4 mg/dL (8.5-10.1); CREATININE 0.6 mg/dL (0.6-1.3); POTASSIUM 3.4 mmol/L (3.5-5.1)
[2020-08-22] MEDS: VANCOMYCIN 1.25 GM in IV D5W 250 ML IV SCH (05:30)
[2020-08-22] MEDS ORDERED: HALOPERIDOL LACTATE INJ 5 MG/ML VIAL IV STA (06:11)
[2020-08-22] MEDS ORDERED: HALOPERIDOL LACTATE INJ 5 MG/ML VIAL ONE (06:12)
[2020-08-22] MEDS ORDERED: diphenhydrAMINE HCL 50 MG/ML VIAL IV STA (06:20)
[2020-08-22] MEDS ORDERED: diphenhydrAMINE HCL 50 MG/ML VIAL ONE (06:21)
[2020-08-22] MEDS ORDERED: HALOPERIDOL LACTATE INJ 5 MG/ML VIAL IM ONE (06:30)
--- NOTE | 2020-08-22 07:32 | NUR ---
COMMERCIAL PEST CONTROL REPRESENTATIVE DESPITE BEING ON FENTANYL, VERSED, PRECEDEX PT FULLY WOKE UP. ATIVAN, HALDOL, BENADRYL GIVEN. NON EFFECTIVE. NURSING AND COVERSTITCH ELASTIC ATTACHER AT BEDSIDE W/PT FOR R/O SELF EXTUBATION. PT DIAPHORETIC AND REPEATEDLY TRYING TO SIT UP AND SWINGING BEDS OUT OF LEGS.
--- NOTE | 2020-08-22 07:45 | NUR ---
ICU/RN: INITIAL NOTES,AM RECEIVED PT AGITATED, THRASHING AND KICKING IN BED. UNDERGRADUATE INTERN AT BEDSIDE WITH MOBILITY DEVELOPER TO ENSURE PT SAFETY. PT INTUBATED AND ON FENTANYL, VERSED AND PRECEDEX. PT DIAPHORETIC, TEMP NOTED, COOLING MEASURES TAKEN. PIV'S PATENT AND INTACT, NO S/S OF INFECTION OR INFILTRATION NOTED. SINUS ON TELE. 1:1 SITTER REQUESTED FOR PT SAFETY. ALL NEEDS WILL BE ATTENDED TO, SAFETY MEASURES TAKEN, BED IN LOW POSITION, SIDE RAILS UP, CALL LIGHT WITHIN REACH. WILL CONTINUE TO CLOSELY MONITOR.
--- NOTE | 2020-08-22 08:55 | NUR ---
WOUND CARE: PT NOT TO BE TURNED AT THIS TIME DUE TO PREVIOUS SEVERE AGITATION. PT RESTING AT THIS TIME. WILL ATTEMPT TO SEE PT AT LATER TIME PT CONDITION PERMITS. SKIN PROTECTION RECOMMENDATIONS IN PLACE AND DISCUSSED WITH NURSING STAFF. REDDISH DISCOLORATION NOTED TO LEFT PLANTAR HEEL.
[2020-08-22] MEDS: FENTANYL CITRAT IV 2,500 MCG in IV NS 0.9% 200 ML IV PRN ×2 (08:59→21:13)
[2020-08-22] MEDS: ENOXAPARIN SODIUM 40 MG/0.4 ML DISP.SYRIN SQ SCH (08:59)
--- NOTE | 2020-08-22 09:00 | NUR ---
ICU/RN: SEDATION VACATION PER PT CONDITION ORDERS RECEIVED FROM FOR NO SEDATION VACATION. PT ON FENTANYL,VERSED AND PRECEDEX, OPENS EYES AND FOLLOWS COMMANDS. SEVERELY AGITATED.
[2020-08-22 09:10] LABS: BASOPHILS # (AUTO) 0.1 /CMM (0.0-0.2); BASOPHILS % (AUTO) 0.4 % (0.0-2.0); EOSINOPHILS % (AUTO) 2.7 % (0.0-6.0); HEMATOCRIT 33 % (39-51); HEMOGLOBIN 10.8 g/dL (13.5-17.5); LYMPHOCYTES # (AUTO) 1.4 /CMM (0.8-4.8); LYMPHOCYTES % (AUTO) 9.3 % (20.0-44.0); MEAN CORPUSCULAR HGB CONC 33 g/dl (31.0-36.0); MEAN CORPUSCULAR VOLUME 98 fL (80-96); MONOCYTES # (AUTO) 2.9 /CMM (0.1-1.30); NEUTROPHILS # (AUTO) 10.3 /CMM (1.8-8.9); NEUTROPHILS % (AUTO) 68.6 % (43.0-81.0); PLATELET COUNT (AUTO) 326 /CMM (150-450); RED BLOOD CELL COUNT(AUTO) 3.34 MIL/uL (4.5-6.0)
[2020-08-22 09:51] LABS: ABG BASE EXCESS 4.5 mmol/L; ABG OXYGEN SATURATION 98.5 % (92.0-98.5); ABG PCO2 40.2 mmHg (35.0-45.0); ABG PH 7.468 (7.350-7.450); ABG PO2 123.8 mmHg (75.0-100.0); COHb 0.3 % (0.5-1.5); MetHb 0.2 % (0.0-1.5); PEEP,BG 8 cm H2O; SITE, ABG Left Brachial; VT, ABG 550 mL
[2020-08-22] MEDS ORDERED: LORAZEPAM INJ 2 MG/ML VIAL IV PRN (11:00)
[2020-08-22] MEDS ORDERED: MORPHINE SULFATE INJ 10 MG/ML DISP.SYRIN IV ONE (11:00)
--- NOTE | 2020-08-22 11:00 | NUR ---
ICU/RN: PT SEVERELY AGITATED, THRASHING/KICKING. PT ASSESSED BY . PRN MEDICATION ORDERS RECEIVED. WILL FOLLOW THROUGH.
[2020-08-22 11:29] LABS: BAND % (MANUAL) 8 % (0.0-5.0); EOSINOPHILS % (MANUAL) 4 % (0-4); LYMPHOCYTES % (MANUAL) 4 % (16-48); MONOCYTES % (MANUAL) 24 % (0-11.0); NEUTROPHILS % (MANUAL) 60 (42-76)
[2020-08-22] MEDS: VANCOMYCIN 1.5 GM in IV D5W 500ml IV SCH ×2 (11:44→20:15)
[2020-08-22] MEDS: POTASSIUM CL. PREMIX PERIPHER. 50 ML IV SCH ×2 (11:49→12:59)
--- NOTE | 2020-08-22 17:37 | NUR ---
RT 0810 RECEIVED PT ORALLY INTUBATED W/ 7.0 ETT MARKED @ 27 CM LIP, WITH NOTED VENT SETTINGS. ANALYTIC MANAGER DONE AND TUBE IS SECURE. VENT ALARMS CHECKED AND AUDIBLE. VENT PLUGGED IN RED OUTLET. AMBU BAG NOTED HOB. CHARLY B/S, SX W/ MOD THK YELLOW SECRETIONS. 0827: REPORT GIVEN TO DR CUMMINS WITH CURRENT VENT SETTINGS. PER MD PLACED PT ON +8 OF PEEP. ORDER IS IN AND CHANGES WERE MADE. 1000: ABG DONE AND RESULTS RELAYED TO RN AND MD. PER MD LOWER PTS FIO2 TO 70%. 1737: PT TOLERATING SETTINGS WELL T/O SHIFT. NO SOB OR RESP DISTRESS NOTED. WILL ENDORSE TO NOC SHIFT FOR SHARON.
--- NOTE | 2020-08-22 18:42 | NUR ---
ICU/RN: ENDING NOTES,AM REPORT WILL BE ENDORSED TO NIGHT NURSE FOR SHARON. PT INTUBATED AND SEDATED, ON VENT SETTINGS ORDERED BY MD. PT CONTINUES TO BE ON FENTANYL, VERSED AND PRECEDEX, IVF INFUSING ORDERED WELL. 1:1 SITTER AT BEDSIDE. PT HAS MANY EPISODES OF SEVERE AGITATION AND THRASHING. PRN MEDICATIONS ORDERED. ALL NEEDS ATTENDED TO, SAFETY MEASURES TAKEN, BED IN LOW POSITION, SIDE RAILS UP, CALL LIGHT WITHIN REACH. BED BATH GIVEN, TURNED AND REPOSITIONED. WILL CONTINUE CARE.
--- NOTE | 2020-08-22 19:30 | NUR ---
COMMERCIAL CREDIT ANALYST RCD PT W/TOXIC ENCEPHALOPATHY PT IS SEDATED ON PRECEDEX, FENTANYL, VERSED. ST ON MONITOR. FLEXISEAL AND DORAN IN PLACE. BL HEEL REDNESS APPLIED MEPILEX. 1:1 SITTER AT BEDSIDE. INTUBATED 7 @ 27 AC 14 550 70% +8.
--- NOTE | 2020-08-22 20:30 | NUR ---
RN DIABETES PT W/MOMENTS OF AGITATION FENTANYL INCREASED PER PROTOCOL. CONTINUE TO MONITOR. SITTER AT BEDSIDE FOR SAFETY.
[2020-08-22] MEDS: MORPHINE SULFATE INJ 2 MG/ML DISP.SYRIN IV PRN (20:38)
[2020-08-22] MEDS: ACETAMINOPHEN 650 MG/20.3 ML UDC NG PRN (20:53)
--- NOTE | 2020-08-22 21:00 | NUR ---
VP OF TECHNOLOGY PT W/TEMP 102.3 ADM TYLENOL AND RENDERED COOLING MEASURES.
[2020-08-23] VITALS (24 sets, daily range): BP systolic 97–153; BP diastolic 43–88
[2020-08-23] MEDS: PIPERACILLIN /TAZOBACTAM 4.5 G in IV D5W 50 ML IV SCH ×4 (00:30→17:41)
[2020-08-23] MEDS: ALBUTEROL HALF STRENGTH 1.25 MG/3 ML VIAL.NEB NEB SCH ×4 (00:55→19:35)
[2020-08-23] MEDS: IPRATROPIUM NEB FS 0.5 MG/2.5 ML AMPUL.NEB NEB SCH ×4 (00:55→19:35)
[2020-08-23] MEDS: IV NS 0.9% 1,000 ML IV PRN ×3 (01:15→18:13)
[2020-08-23] MEDS: PRECEDEX 400 MCG/100 ML BOTTLE 100 ML IV PRN ×8 (01:55→22:09)
--- NOTE | 2020-08-23 02:00 | NUR ---
REAL ESTATE PHOTOGRAPHER RENDERED COMPLETE BED BATH AND ORAL CARE; PT TOLERATED WELL.
[2020-08-23] MEDS: IV NS 0.9% 250 ML IV PRN (03:15)
[2020-08-23] MEDS: VANCOMYCIN 1.5 GM in IV D5W 500ml IV SCH ×2 (03:15→12:57)
[2020-08-23 05:15] LABS: CREATININE 0.6 mg/dL (0.6-1.3); POTASSIUM 3.1 mmol/L (3.5-5.1)
--- NOTE | 2020-08-23 06:43 | NUR ---
CONTINUOUS LINTER DRIER OPERATOR BLOOD GLUCOSE 31 RECHECKED 49; ORANGE JUICE GIVEN. WILL RECHECK. FIRE INVESTIGATION LIEUTENANT NOTIFIED. Addendum: 08/23/20 at 0644 by SIMIN VALLES RN ERROR WRONG PT
--- NOTE | 2020-08-23 06:45 | NUR ---
GEAR ROLLER PT REMAINED ADEQUATELY SEDATED ON FENTANYL, VERSED, PRECEDEX. [facility] RESTRAINTS REMAIN IN PLACE AND 1:1 SITTER AT BEDSIDE D/T R/O EXTUBATION. PT CALM AND ABLE TO FOLLOW SIMPLE COMMANDS.
--- NOTE | 2020-08-23 07:45 | NUR ---
ICU/RN: INITIAL NOTES,AM RECEIVED PT INTUBATED AND SEDATED. ETT 7, 27CM AT THE LIP. PT ON FENTANYL, VERSED AND PRECEDEX. PIV'S PATENT AND INTACT, NO S/S OF INFECTION OR INFILTRATION NOTED, ORDERS FOR MIDLINE IN PLACE. SINUS ON TELE. 1:1 SITTER REQUESTED FOR PT SAFETY. ALL NEEDS WILL BE ATTENDED TO, SAFETY MEASURES TAKEN, BED IN LOW POSITION, SIDE RAILS UP, CALL LIGHT WITHIN REACH. WILL CONTINUE TO CLOSELY MONITOR. BILATERAL SOFT WRIST RESTRAINTS IN PLACE AND MONITORED FOR SAFETY
--- NOTE | 2020-08-23 07:50 | NUR ---
RT PER DR CUMMINS FIO2 TITRATED TO 50% PEEP LOWERED TO 5. PATIENT REMAINS ORALLY INTUBATED ON MECH VENT. PATIENT SEDATED AND APPEARS COMFORTABLE. ALARMS CHECKED + AUDIBLE. AMBU BAG AT HOB. Addendum: 08/23/20 at 0843 by MIHAELA ROOT RT Amended: Links added.
--- NOTE | 2020-08-23 07:54 | NUR ---
WOUND CARE CONSULT: PT SEEN FOR SKIN ASSESSMENT AND NOTED TO HAVE INCONTINENCE ASSOCIATED SKIN DAMAGE TO GLUTEAL CREASE, SOME DISCOLORATION TO OUTER BUTTOCKS AND BLANCHABLE REDNESS TO SACRUM AND HEELS. PT NOTED TO HAVE RECTAL TUBE AND DORAN CATH. PT BECOMES EXTREMELY AGITATED AT TIMES. SITTER AT BEDSIDE. RECOMMENDATIONS MADE FOR SKIN PROTECTION. DISCUSSED WITH NURSING STAFF AND DIRECTOR OF TEACHING AND LEARNING. WILL SEE PRN. ORDOÑEZ IN AGREEMENT WITH PLAN OF CARE. Addendum: 08/23/20 at 0756 by АНДРЕЙ HUERTA WNDNU Amended: Links added.
--- NOTE | 2020-08-23 08:05 | NUR ---
ICU/RN: VENT CHANGES NOTED, FI02 50%, PEEP 5. WILL CONTINUE TO MONITOR
[2020-08-23] MEDS: ENOXAPARIN SODIUM 40 MG/0.4 ML DISP.SYRIN SQ SCH (08:40)
[2020-08-23] MEDS: POTASSIUM CHLORIDE 20 MEQ POWDER PACKET GT SCH ×3 (09:17→11:17)
[2020-08-23] MEDS: MIDAZOLAM HCL 100 MG in IV NS 0.9% 80 ML IV PRN ×2 (10:26→20:54)
[2020-08-23] MEDS: FENTANYL CITRAT IV 2,500 MCG in IV NS 0.9% 200 ML IV PRN ×2 (10:31→20:55)
--- NOTE | 2020-08-23 11:00 | NUR ---
ICU/RN: SEDATION VACATION. PT OPENS EYES, FOLLOWS COMMANDS. CALM AND COOPERATIVE. WILL CONTINUE TO MONITOR AND ASSESS.
--- NOTE | 2020-08-23 16:30 | NUR ---
ICU/RN: MIDLINE INSERTED. EDD AT BEDSIDE, NO S/S OF INFILTRATION NOTED. WILL CONTINUE TO MONITOR
--- NOTE | 2020-08-23 16:58 | NUR ---
RT PATIENT VERY RESTLESS AND UNABLE TO SEDATE WITH CURRENT SEDATION ORDERS. DR CUMMINS NOTIFIED THAT PATIENT IS AWAKE AND RESPONSIVE. RELAYED CONCERNS OF PATIENT THRASHING AROUND MAY CAUSE ETT TO LOSE POSITION. SITTER AT BEDSIDE, LARON MORRIS AWARE.
[2020-08-23] MEDS: LORAZEPAM INJ 2 MG/ML VIAL IV PRN ×2 (17:02→19:31)
--- NOTE | 2020-08-23 17:15 | NUR ---
ICU/RN: PT AGITATED, INCREASED WORK OF BREATHING, USE OF ACCESSORY MUSCLES. TITRATED PRECEDEX TO MAX DOSE. PRN ATIVAN GIVEN. WILL REASSESS.
[2020-08-23] MEDS: MORPHINE SULFATE INJ 2 MG/ML DISP.SYRIN IV PRN (18:05)
[2020-08-23] MEDS: VANCOMYCIN 1 GM in IV D5W 250ml IV SCH (18:10)
--- NOTE | 2020-08-23 18:10 | NUR ---
PT CONTINUES TO BE AGITATED AND DISTRESSED. PRN MORPHINE ADMINISTERED, WILL CONTINUE TO MONITOR
--- NOTE | 2020-08-23 19:08 | NUR ---
ICU/RN: ENDING NOTES,AM REPORT ENDORSED TO NIGHT NURSE. PT ALERT, AWAKE, AGITATED, INCREASED WORK OF BREATHING NOTED. STAT CHEST XRAY ORDERED. RIGHT UPPER ARM MIDLINE IN PLACE, VERSED, FENTANYL AND PRECEDEX INFUSING. WILL TITRATE FENTANYL PER PROTOCOL TO ACHIEVE COMFORT FOR PT. IVF INFUSING ORDERED. ALL NEEDS ATTENDED TO, SAFETY MEASURES TAKEN, BED IN LOW POSITION, SIDE RAILS UP, CALL LIGHT WITHIN REACH. BILATERAL SOFT WRIST RESTRAINTS IN PLACE.
--- NOTE | 2020-08-23 19:31 | NUR ---
RN NOTES RECEIVED PATIENT IN BED INTUBATED, AGITATED, ETT AT THE LIP. PATIENT CONTINUES ON FENTANYL, VERSED, PRECEDEX TOLERATING WELL. TELE MONITOR SHOWS SR. IV'S INTACT PATENT FLUSHES WELL NO INFILTRATION OR INFECTION NOTED. PATIENT ON 1:1 SITTER FOR SAFETY. KEPT CLEAN DRY AND COMFORTABLE NO S/S OF DISTRESS NOTED. PRN ATIVAN GIVEN. WILL REASSESS. BUE SOFT RESTRAINS IN PLACE FOR SAFETY. SAFETY MEASURES IN PLACE, SIDE RAILS UP, CALL LIGHT WITHIN REACH. WILL CONT TO MONITOR FOR SHARON.
--- NOTE | 2020-08-23 20:00 | NUR ---
ATIVAN IS EFFECTIVE PATIENT IS RESTING COMFORTABLY.
--- NOTE | 2020-08-23 21:00 | NUR ---
MOUTH CARE GIVEN SUCTION PROVIDED. PATIENT TOLERATED WELL. ALL SAFETY MEASURES IN PLACE.
--- NOTE | 2020-08-23 23:00 | NUR ---
PATIENT RESTING COMFORTABLE NO S/S OF DISTRESS NOTED. REPOSITION FOR COMFORT. WILL CONT TO MONITOR.
[2020-08-24] VITALS (24 sets, daily range): BP systolic 107–157; BP diastolic 54–91
[2020-08-24] MEDS: PIPERACILLIN /TAZOBACTAM 4.5 G in IV D5W 50 ML IV SCH ×4 (00:03→17:42)
[2020-08-24] MEDS: VANCOMYCIN 1 GM in IV D5W 250ml IV SCH ×4 (00:03→18:21)
[2020-08-24] MEDS: ACETAMINOPHEN 650 MG/20.3 ML UDC NG PRN (00:25)
--- NOTE | 2020-08-24 00:25 | NUR ---
PRN TYLENOL 650MG GIVEN FOR TEMP 101.2. WILL CONT TO MONITOR.
[2020-08-24] MEDS: PRECEDEX 400 MCG/100 ML BOTTLE 100 ML IV PRN ×3 (00:53→06:13)
[2020-08-24] MEDS: IPRATROPIUM NEB FS 0.5 MG/2.5 ML AMPUL.NEB NEB SCH ×4 (01:05→20:05)
[2020-08-24] MEDS: ALBUTEROL HALF STRENGTH 1.25 MG/3 ML VIAL.NEB NEB SCH ×4 (01:05→20:05)
--- NOTE | 2020-08-24 01:25 | NUR ---
PRN TYLENOL EFFECTIVE TEMP LOWER TO 98.8. PATIENT RESTING COMFORTABLY. ALL NEEDS ATTENDED. WILL CONT TO MONITOR CLOSELY.
[2020-08-24] MEDS: IV NS 0.9% 1,000 ML IV PRN (02:04)
[2020-08-24 04:43] LABS: BASOPHILS # (AUTO) 0.1 /CMM (0.0-0.2); BASOPHILS % (AUTO) 0.4 % (0.0-2.0); EOSINOPHILS % (AUTO) 1.8 % (0.0-6.0); HEMATOCRIT 28 % (39-51); HEMOGLOBIN 9.3 g/dL (13.5-17.5); LYMPHOCYTES # (AUTO) 1.8 /CMM (0.8-4.8); LYMPHOCYTES % (AUTO) 13.2 % (20.0-44.0); MEAN CORPUSCULAR HGB CONC 34 g/dl (31.0-36.0); MEAN CORPUSCULAR VOLUME 97 fL (80-96); NEUTROPHILS # (AUTO) 10.6 /CMM (1.8-8.9); NEUTROPHILS % (AUTO) 77.6 % (43.0-81.0); PLATELET COUNT (AUTO) 300 /CMM (150-450); RED BLOOD CELL COUNT(AUTO) 2.82 MIL/uL (4.5-6.0); WHITE BLOOD COUNT (AUTO) 13.6 K/uL (4.3-11.0)
[2020-08-24 05:08] LABS: CALCIUM, SERUM 8.2 mg/dL (8.5-10.1); CREATININE 0.6 mg/dL (0.6-1.3); POTASSIUM 3.1 mmol/L (3.5-5.1)
--- NOTE | 2020-08-24 07:00 | NUR ---
RN NOTES PATIENT NOTED WITH INFILTRATION OF LT HAND. PATIENT HAS GOOD PULSES, ABLE TO MOVE EXTREMITY, ELEVATE THE ARM. WARM COMPRESSION GIVEN. DUPLEX JAYDON DOPPLER ORDERED TO R/O POSSIBLE DVT. ENDORSE TO AM NURSE TO FOLLOW UP. Addendum: 08/24/20 at 0738 by LUCILLE RODRIGUEZ RN IV REMOVED.
--- NOTE | 2020-08-24 07:20 | NUR ---
RN NOTES PATIENT RESTED COMFORTABLY IN BED CONTINUES ON FENTANYL, VERSED, AND PRECEDEX TOLERATED WELL. IV FLUIDS INFUSING ORDERED. DUE MEDICATIONS WERE GIVEN ORDERED ALONG WITH PRN TYLENOL AND ATIVAN NOTED TO BE EFFECTIVE. BUE SOFT RESTRAINS IN PLACE FOR SAFETY. KEPT CLEAN DRY AND COMFORTABLE. ALL NEEDS ATTENDED. SAFETY MEASURES IN PLACE. ENDORSE TO AM NURSE FOR SHARON.
--- NOTE | 2020-08-24 07:55 | NUR ---
RT RECEIVED PT ORALLY INTUBATED W/ 7.0 ETT MARKED @ 27 CM LIP, WITH NOTED VENT SETTINGS. LAND LEVELER DONE AND TUBE IS SECURE. VENT ALARMS CHECKED AND AUDIBLE. VENT PLUGGED IN RED OUTLET. AMBU BAG NOTED HOB. CHARLY B/S, SX W/ MOD PINK SECRETIONS. BREATHING TX GIVEN AND NO ADV REACTION. PT AWAKE AND ALERT, FOLLOWING COMMANDS. REPORT GIVEN TO DR CUMMINS ABOUT CURRENT SETTINGS. PER MD WILL TRY TO WEAN PT. ORDER IS IN AND WILL CARRY OUT SOON SEDATION IS OFF. NO SOB OR RESP DISTRESS NOTED AT THE TIME.
[2020-08-24] MEDS ORDERED: DC PROPOFOL WHEN EXTUBATED XX PRN ×2 (08:00→09:30)
[2020-08-24] MEDS ORDERED: POTASSIUM CHLORIDE 20 MEQ POWDER PACKET GT SCH ×2 (08:00→09:30)
--- NOTE | 2020-08-24 08:00 | NUR ---
ICU/RN: INITIAL NOTES,AM RECEIVED PT INTUBATED AND SEDATED. ETT 7, 27CM AT THE LIP. PT ON FENTANYL, VERSED AND PRECEDEX DRIP. LEFT ARM PIV INFILTRATED, REMOVED BY NIGHT RN. ARM ELEVATED, WARM COMPRESS APPLIED, VENOUS DOPPLER ORDERED. PULSES PALPABLE, STRONG. SINUS ON TELE. 1:1 SITTER REQUESTED FOR PT SAFETY. ORDERS FOR VENT WEANING THIS AM. ALL NEEDS WILL BE ATTENDED TO, SAFETY MEASURES TAKEN, BED IN LOW POSITION, SIDE RAILS UP, CALL LIGHT WITHIN REACH. WILL CONTINUE TO CLOSELY MONITOR. BILATERAL SOFT WRIST RESTRAINTS IN PLACE AND MONITORED FOR SAFETY
--- NOTE | 2020-08-24 08:30 | NUR ---
ICU/RN: AT BEDSIDE. ORDERS RECEIVED TO STOP ALL MEDICATIONS WITHOUT TITRATION FOR RAPID VENT WEANING AND EXTUBATION. BEING ASSESSED BY MD AND RN.
--- NOTE | 2020-08-24 08:30 | NUR ---
ICU/RN: LEFT ARM DOPPLER. POSITIVE FOR LEFT CEPHALIC DVT. AND AWARE. WILL CONTINUE TO MONITOR AND ASSESS
--- NOTE | 2020-08-24 08:50 | NUR ---
ICU/RN: PT PLACED ON SIMV 4, PS 15, 50%, +5, WILL CONTINUE TO MONITOR, ALL MEDICATIONS OFF AT THIS TIME.
--- NOTE | 2020-08-24 08:50 | NUR ---
RT PT PLACED ON SIMV 4 PS 15 50% +5 PER MD ORDER. RN AWARE. WILL MONITOR PT.
[2020-08-24] MEDS: ENOXAPARIN SODIUM 40 MG/0.4 ML DISP.SYRIN SQ SCH (09:13)
--- NOTE | 2020-08-24 09:15 | NUR ---
RT PT WEANING, SEEN BY MD, EXTUBATION ORDER WAS PLACED. RN AWARE.
--- NOTE | 2020-08-24 09:30 | NUR ---
ICU/RN: PT SUCCESSFULLY EXTUBATED. NO STRIDOR HEARD. STRONG COUGH. PER MD PLACE PT ON HIGH FLOW 60LITERS/100%, WILL TITRATE TO MAINTAIN O2 >92%
--- NOTE | 2020-08-24 09:40 | NUR ---
RT PT SUCCESSFULLY EXTUBATED. NO STRIDOR HEARD. STRONG COUGH. PER MD PLACE PT ON HIGH FLOW NC INITIAL 60L 100% AND TITRATE. PT SP02 99% -98% DECREASED FIO2 TO 60%
--- NOTE | 2020-08-24 12:30 | NUR ---
ICU/RN: SWALLOW EVAL DONE. NECTAR THICK DIET. ASPIRATION PRECAUTIONS
--- NOTE | 2020-08-24 15:24 | NUR ---
RT PLACED PT ON 6L NC. SP02 97-98%. NO SOB OR RESP DISTRESS NOTED. WILL CONTINUE TO MONITOR. RN AWARE.
--- NOTE | 2020-08-24 17:00 | NUR ---
ICU/RN: EPISODES OF VOMITING NOTED. ASPIRATION PRECAUTIONS TAKEN. CALLED MD, ORDERS FOR ZOFRAN RECEIVED.
--- NOTE | 2020-08-24 19:25 | NUR ---
ICU/RN: ENDING NOTES,AM REPORT ENDORSED TO NIGHT NURSE FOR SHARON. PT NOW ON 6LITERS NASAL CANULA, TOLERATING WELL, NO DISTRESS NOTED. ALERT, AWAKE, FOLLOWS COMMANDS. SINUS ON TELE. VSS. BED BATH GIVEN, TURNED AND REPOSITIONED, SKIN CARE RENDERED. BED IN LOW POSITION, SIDE RAILS UP, CALL LIGHT WITHIN REACH. FAMILY ZOOM CALLED AND UPDATES GIVEN. LEFFT ARM SWELLING MUCH BETTER, ELEVATED, WARM COMPRESSES APPLIED. WILL CONTINUE TO MONITOR.
--- NOTE | 2020-08-24 19:30 | NUR ---
RN NOTES RECEIVED PATIENT EXTUBATED, BREATHING NORMAL NO SOB NOTED. RESPIRATION EVEN NON LABORED. ON 6L/MIN VIA NC SATURATING WELL. TELE MONITOR SHOWS SR IN 80'S. ELVIRA MIDLINE INTACT PATENT AND FLUSHES WELL. F/C INTACT PATIENT URINE DARNING WELL TO GRAVITY. SAFETY MEASURES IN PLACE, SIDE RAILS UP, CALL LIGHT WITHIN REACH. WILL CONT TO MONITOR FOR SHARON.
[2020-08-24] MEDS: GUAIFENESIN LA 600 MG TABLET.SA PO SCH (20:56)
--- NOTE | 2020-08-24 22:00 | NUR ---
LINEN CHANGE DONE REPOSITION FOR COMFORT. SKIN CARE PROVIDED. ALL SAFETY MEASURES IN PLACE. CALL LIGHT WITHIN REACH. WILL CONT TO MONITOR.
--- NOTE | 2020-08-25 | NUR ---
PATIENT REFUSED IV ANTIBIOTICS OFFERED X3 RISK AND BENEFITS EXPLAINED. PATIENT STILL REFUSED [employer] DISPATCHER AND CHARGE NURSE AWARE. WILL CONT TO MONITOR. ALL SAFETY MEASURES IN PLACE. CALL LIGHT WITHIN REACH.
[2020-08-25] MEDS: LORAZEPAM INJ 2 MG/ML VIAL IV PRN (00:02)
[2020-08-25] MEDS: PIPERACILLIN /TAZOBACTAM 4.5 G in IV D5W 50 ML IV SCH ×4 (00:03→06:00)
--- NOTE | 2020-08-25 00:21 | NUR ---
RN NOTES PATIENT IS VERY ANXIOUS AGITATED WANTED TO LEAVE AMA. PATIENT REMOVED B/P CUFF OXYGEN AND THE LEADS/ SCD PUMP. COLLECTION CORRESPONDENT MADE AWARE AND IMMEDIATELY WENT TO THE FLOOR. [place] FROM CRISIS TEAM CAME SPOKE AND ASSESS THE PATIENT. PATIENT STILL WANTED TO LEAVE AMA IT'S OK TO THE CRISIS TEAM FOR PATIENT TO LEAVE, AMA FORM SIGNED. IV'S REMOVED. ATTEMPTED TO D/C THE F/C DUE TO RESISTANT UNABLE TO REMOVE THE DORAN. LIDOCAINE WAS USED TO D/C THE DORAN BUT NOT TO AVAIL. PATIENT DECIDED TO STAY BECAUSE OF THE DORAN. "STATED FEELING TIRED AND WANTED TO SLEEP FOR NOW". TRIED TO RE-INSERT THE IV LINE PATIENT REFUSED AND STATED "PLEASE LEAVE ME ALONE AND GIVE ME SOME TYLENOL FOR HEADACHE AND SOMETHING TO CALM ME DOWN SO I CAN SLEEP". GALINA FILLETER ON THE FLOOR AWARE AND RECEIVED NEW ORDER FOR PRN ATIVAN 2MG PO Q4H AND BENADRYL 25MG PO Q8H ORDER NOTED AND CARRIED OUT. PATIENT IS CALM AND COMFORTABLE. ALL SAFETY MEASURES IN PLACE, SIDE RAILS UP, CALL LIGHT WITHIN REACH. WILL CONT TO MONITOR.
[2020-08-25] MEDS ORDERED: LIDOCAINE 2% JEL UROJET 10 ML MM ONE (01:08)
[2020-08-25] MEDS: IPRATROPIUM NEB FS 0.5 MG/2.5 ML AMPUL.NEB NEB SCH ×5 (01:27→20:54)
[2020-08-25] MEDS: ALBUTEROL HALF STRENGTH 1.25 MG/3 ML VIAL.NEB NEB SCH ×5 (01:27→20:54)
[2020-08-25] MEDS: ACETAMINOPHEN 325 MG TABLET PO PRN ×2 (01:36→22:55)
[2020-08-25] MEDS ORDERED: LORAZEPAM ORAL SOLN 2 MG/ML ORAL.CONC PO PRN (02:00)
[2020-08-25] MEDS ORDERED: LIDOCAINE 2% GEL 30 ML TUBE MM ONE (02:00)
[2020-08-25] MEDS ORDERED: diphenhydrAMINE HCL ELIX 25 MG/10 ML UDC PO PRN (02:00)
[2020-08-25] MEDS: LORAZEPAM 1 MG TABLET PO PRN (02:19)
[2020-08-25] MEDS: diphenhydrAMINE HCL 25 MG CAPSULE PO PRN ×2 (02:19→23:40)
--- NOTE | 2020-08-25 04:00 | NUR ---
PATIENT REFUSED TO PUT B/P CUFF. TELE MONITOR ON. OFFERED X3 RISK AND BENEFITS EXPLAINED. STILL REFUSED. WILL CONT TO MONITOR.
--- NOTE | 2020-08-25 04:10 | NUR ---
BED BATH GIVEN PATIENT TOLERATED WELL.
[2020-08-25 05:02] VITALS: BP 136/58
--- NOTE | 2020-08-25 05:10 | NUR ---
PATIENT HAD BM CLEAN THE PATIENT, REPOSITION FOR COMFORT. WILL CONT TO MONITOR.
[2020-08-25 05:30] LABS: BASOPHILS # (AUTO) 0.1 /CMM (0.0-0.2); BASOPHILS % (AUTO) 0.4 % (0.0-2.0); EOSINOPHILS % (AUTO) 0.4 % (0.0-6.0); HEMATOCRIT 31 % (39-51); HEMOGLOBIN 10.7 g/dL (13.5-17.5); LYMPHOCYTES # (AUTO) 1.6 /CMM (0.8-4.8); LYMPHOCYTES % (AUTO) 10.5 % (20.0-44.0); MEAN CORPUSCULAR HGB CONC 34 g/dl (31.0-36.0); MEAN CORPUSCULAR VOLUME 96 fL (80-96); MONOCYTES # (AUTO) 0.6 /CMM (0.1-1.30); NEUTROPHILS # (AUTO) 13.3 /CMM (1.8-8.9); NEUTROPHILS % (AUTO) 84.7 % (43.0-81.0); PLATELET COUNT (AUTO) 470 /CMM (150-450); RED BLOOD CELL COUNT(AUTO) 3.25 MIL/uL (4.5-6.0); WHITE BLOOD COUNT (AUTO) 15.7 K/uL (4.3-11.0)
[2020-08-25 05:37] LABS: CALCIUM, SERUM 8.4 mg/dL (8.5-10.1); CREATININE 0.6 mg/dL (0.6-1.3)
[2020-08-25 06:00] VITALS: BP 109/47
[2020-08-25] MEDS: VANCOMYCIN 1 GM in IV D5W 250ml IV SCH ×3 (06:00)
--- NOTE | 2020-08-25 06:00 | NUR ---
PATIENT REFUSED IV ANTIBIOTICS OFFERED X3 RISK AND BENEFITS EXPLAINED. PATIENT STILL REFUSED [employer] LANGUAGE TUTOR AND CHARGE NURSE AWARE. WILL CONT TO MONITOR. ALL SAFETY MEASURES IN PLACE. CALL LIGHT WITHIN REACH. WILL CON TO MONITOR.
[2020-08-25 06:02] LABS: POTASSIUM 2.5 mmol/L (3.5-5.1)
--- NOTE | 2020-08-25 06:45 | NUR ---
PATIENT HAD BM CLEAN THE PATIENT, REPOSITION FOR COMFORT. CONTINUES TO REFUSING REINSERTING IV LINES, SCD PUMPS RISK AND BENEFITS EXPLAINED, STILL REFUSING.
[2020-08-25] MEDS ORDERED: POTASSIUM CHLORIDE 20 MEQ TAB.PRT.SR PO ONE (07:00)
--- NOTE | 2020-08-25 07:38 | NUR ---
RN NOTES PATIENT RESTING COMFORTABLY IN BED, STILL REFUSING TO PUT IV LINES AND SCD PUMPS KEEP REMOVING OXYGEN, EDUCATED THE PATIENT STILL REFUSING. ENDORSE TO AM NURSE TO FOLLOW UP. RECEIVED CALL FROM LAB POTASSIUM 2.5 GALINA AWARE NEW ORDER RECEIVED NOTED AND CARRIED OUT. KEPT CLEAN DRY AND COMFORTABLE. DENIES ANY PAIN OR DISCOMFORT. ALL NEEDS ATTENDED. CALL LIGHT WITHIN REACH. BED IN LOW AND LOCKED POSITION. ENDORSE TO AM NURSE FOR SHARON.
[2020-08-25] MEDS ORDERED: POTASSIUM CHLORIDE 20 MEQ POWDER PACKET PO ONE (08:00)
--- NOTE | 2020-08-25 08:00 | NUR ---
received pt from night order selector, a/o x4, refuses monitoring, IV insertion, pulls out all the lids and lines, so we unable to monitor patient, seen by Dr Gonzalez, Dr Spence also is aware of the situation, we were able to remove his Estes.
[2020-08-25] MEDS: ENOXAPARIN SODIUM 40 MG/0.4 ML DISP.SYRIN SQ SCH (08:35)
[2020-08-25] MEDS: GUAIFENESIN LA 600 MG TABLET.SA PO SCH ×2 (08:50→20:20)
[2020-08-25] MEDS: POTASSIUM CHLORIDE 20 MEQ TAB.PRT.SR PO SCH ×5 (10:25→14:16)
[2020-08-25] MEDS ORDERED: ONDANSETRON 4 MG TAB.RAPDIS PO PRN (10:30)
[2020-08-25] MEDS: AMOX/CLAVULANATE 875 MG TABLET PO SCH ×2 (11:20→20:20)
--- NOTE | 2020-08-25 12:15 | NUR ---
agriculture specialist report given to aria miller for con of care no distress noted received pt at 1130am from veronique miller, pt moved to room 110-1 aox4 stabe conditions
--- NOTE | 2020-08-25 13:00 | NUR ---
MS RN NOTE RECEIVED PATIENT FROM ICU ALERT CONFUSION NO SOB NOTED,NO IV HL AR THIS TIME BED IN LOWEST AND LOCKED POSITION , PLAN OF CARE DISCUSSED WITH PATIENT ,REFUSED VS
[2020-08-25 16:00] VITALS: BP 145/71
--- NOTE | 2020-08-25 18:45 | NUR ---
PT LYING IN BED WITH HOB ELEVATED. RESPIRATIONS EVEN AND UNLABORED. SKIN WARM FLUSHED. A/O X3 WITH CONFUSION. ON BEDREST AWAITING PT EVALUATION. SKIN INTACT. ON MECHANICAL SOFT DIET BUT PT UNABLE TO TOLERATE FOOD. NO APPETITE. REFUSED IV AND REFUSED VITAL SIGNS. MEDS GIVEN ORDERED. FALL RISK, BED ALARM ON. HOB ELEVATED, RAILS UP X2, BED LOW, LOCKED, CALL LIGHT IN REACH, ALL HOSPITAL POLICY SAFETY PRECAUTIONS IMPLEMENTED. WILL ENDORSE TO PM RN FOR CONTINUATION OF CARE.
[2020-08-25 20:10] VITALS: BP 140/69
--- NOTE | 2020-08-25 20:10 | NUR ---
RN NOTE RECEIVED PT FROM LARON DAVID FOR CONTINUATION OF CARE. PT IS ALERT AND ORIENTED X 3. ON ROOM AIR. RESPIRATIONS UNLABORED. NOTED WITH PRODUCTIVE COUGH AND HOARSENESS. DENIES DIFFICULTY BREATHING. DENIES PAIN OR DISCOMFORT. SKIN INTACT. ASSISTED TO BATHROOM WITH STANDBY BY ASSIST. PLAN OF CARE DISCUSSED, CALL LIGHT WITHIN REACH, BED ALARM ON, BED LOCKED AND IN LOWEST POSITION, SAFETY MEASURES MAINTAINED, WILL MONITOR PATIENT CLOSELY 1:1 ORDERED.
--- NOTE | 2020-08-25 20:55 | NUR ---
RN NOTE RT AT BEDSIDE ADMINISTERING BREATHING TREATMENT ORDERED.
--- NOTE | 2020-08-25 23:52 | NUR ---
RN NOTE PT ASSISTED TO THE BATHROOM VIA STANDBY ASSIST. PT HAD ONE LOOSE LIGHT BROWN BOWEL MOVEMENT. PT ASSISTED BACK TO BED. PARTIAL LINEN CHANGE COMPLETED. CALL LIGHT WITHIN REACH, SAFETY MEASURES IN PLACE, WILL CONTINUE TO MONITOR.
[2020-08-26] MEDS: LORAZEPAM 1 MG TABLET PO PRN ×3 (00:39→21:33)
[2020-08-26] MEDS: ALBUTEROL HALF STRENGTH 1.25 MG/3 ML VIAL.NEB NEB SCH ×4 (01:30→19:49)
[2020-08-26] MEDS: IPRATROPIUM NEB FS 0.5 MG/2.5 ML AMPUL.NEB NEB SCH ×4 (01:30→19:49)
[2020-08-26 04:00] VITALS: BP 147/72
--- NOTE | 2020-08-26 04:02 | NUR ---
RN NOTE PATIENT ASSISTED TO THE BATHROOM AND BACK TO BED ACCOMPANIED BY RN. OFFERED TO GIVE PATIENT COMPLETE OR PARTAL BED BATH BUT PATIENT REFUSED STATING "NOT RIGHT NOW DUDE I JUST NEED TO GET SOME SLEEP."
--- NOTE | 2020-08-26 04:56 | NUR ---
RN NOTE PT STILL REFUSING BED BATH BUT ALLOWED FOR PARTIAL LINEN CHANGE AND GOWN CHANGE. KEPT COMFORTABLE. WILL CONTINUE TO MONITOR PATIENT. Addendum: 08/26/20 at 0507 by DRAKE CARRASCO RN ORAL CARE AND SKIN CARE PROVIDED.
--- NOTE | 2020-08-26 06:47 | NUR ---
RN NOTE NO ACUTE CHANGES OBSERVED OVERNIGHT. PT KEPT CLEAN AND COMFORTABLE. SLEEPING IN BED BUT EASILY AROUSABLE. RESPIRATIONS EVEN AND UNLABORED WHILE ON ROOM AIR. NO S/SX OF PAIN OR DISCOMFORT. ALL DUE MEDICATIONS ADMINISTERED, ALL NEEDS MET AND ATTENDED TO. SAFETY MEASURES IN PLACE, CALL LIGHT WITHIN REACH, BED ALARM ON, BED LOCKED AND IN LOWEST POSITION, WILL ENDORSE TO MORNING RN FOR CONTINUATION OF CARE. Addendum: 08/26/20 at 0655 by DRAKE CARRASCO RN SEWING DEMONSTRATOR AT BEDSIDE DRAWING AM LABS.
[2020-08-26 07:20] LABS: BASOPHILS # (AUTO) 0.1 /CMM (0.0-0.2); BASOPHILS % (AUTO) 0.5 % (0.0-2.0); EOSINOPHILS % (AUTO) 1.1 % (0.0-6.0); HEMATOCRIT 30 % (39-51); HEMOGLOBIN 10.4 g/dL (13.5-17.5); LYMPHOCYTES # (AUTO) 1.9 /CMM (0.8-4.8); MEAN CORPUSCULAR HGB CONC 34 g/dl (31.0-36.0); MEAN CORPUSCULAR VOLUME 97 fL (80-96); MONOCYTES % (AUTO) 6.1 % (2.0-12.0); NEUTROPHILS # (AUTO) 12.9 /CMM (1.8-8.9); NEUTROPHILS % (AUTO) 80.3 % (43.0-81.0); PLATELET COUNT (AUTO) 508 /CMM (150-450); RED BLOOD CELL COUNT(AUTO) 3.11 MIL/uL (4.5-6.0); WHITE BLOOD COUNT (AUTO) 16.1 K/uL (4.3-11.0)
--- NOTE | 2020-08-26 07:30 | NUR ---
RN OPENING NOTE PATIENT IN BED, A/OX4, VERBAL WITH HOARSE VOICE, ON ROOM AIR, TOLERATING WELL, NO SOB OR RESP DISTRESS NOTED, SPO2 IS 97%, DENIES PAIN OR DISCOMFORT, AMBULATORY WITH ASSIST, FULL CODE, MECHANICAL SOFT DIET, SITTER AT BED SITE PRESENT, REFUSED IV LINES.SAFETY MEASURES IN PLACE BED IN LOWEST POSITION, CALL LIGHT IN REACH, WILL CONT TO MONITOR
[2020-08-26 07:44] LABS: CALCIUM, SERUM 8.4 mg/dL (8.5-10.1); CREATININE 0.6 mg/dL (0.6-1.3); POTASSIUM 2.9 mmol/L (3.5-5.1)
[2020-08-26] MEDS ORDERED: POTASSIUM CL. PREMIX PERIPHER. 50 ML IV SCH (09:30)
[2020-08-26] MEDS ORDERED: POTASSIUM CHLORIDE 20 MEQ TAB.PRT.SR PO SCH (09:30)
[2020-08-26] MEDS: GUAIFENESIN LA 600 MG TABLET.SA PO SCH ×2 (09:55→21:33)
[2020-08-26] MEDS: AMOX/CLAVULANATE 875 MG TABLET PO SCH ×2 (09:55→21:32)
[2020-08-26] MEDS: ENOXAPARIN SODIUM 40 MG/0.4 ML DISP.SYRIN SQ SCH (09:56)
--- NOTE | 2020-08-26 10:45 | NUR ---
IV LINE ESTABLISHED ON L AC G 20, INTACT AND PATENT
[2020-08-26] MEDS: Potassium Chloride 10 MEQ, LIDOCAINE HCL/PF 1% 1 ML in IV D5W 50 ML IV SCH ×8 (10:51→22:45)
[2020-08-26 12:00] VITALS: BP 137/76
[2020-08-26 16:00] VITALS: BP 134/70
--- NOTE | 2020-08-26 19:30 | NUR ---
RN CLOSING NOTES REMAINS IN BED, TOLERATING IV WELL, DENIES PAIN OR DISCOMFORT, SAFETY MEASURES IN PLACE, COMFORT NEEDS ATTENDED, MEDS GIVEN, WILL ENDORSE TO PM SHIFT RN FOR SHARON
[2020-08-26 20:00] VITALS: BP 135/77
[2020-08-26] MEDS: diphenhydrAMINE HCL 25 MG CAPSULE PO PRN (21:33)
[2020-08-27] MEDS: ACETAMINOPHEN 325 MG TABLET PO PRN (01:20)
[2020-08-27] MEDS: ALBUTEROL HALF STRENGTH 1.25 MG/3 ML VIAL.NEB NEB SCH ×4 (01:30→19:30)
[2020-08-27] MEDS: IPRATROPIUM NEB FS 0.5 MG/2.5 ML AMPUL.NEB NEB SCH ×4 (01:30→19:30)
--- NOTE | 2020-08-27 03:26 | NUR ---
RN notes Awake, alert and oriented, verbal. On room air well tolerated. In no apparent distress, breathing even and unlabored. Provided with one to one sitter. Complaint of headache, tylenol given with relief. No significant change of condition. Kept clean and dry. Will endorse to next shift for continuity of care.
[2020-08-27 04:00] VITALS: BP 134/69
[2020-08-27 06:59] LABS: BASOPHILS # (AUTO) 0.1 /CMM (0.0-0.2); BASOPHILS % (AUTO) 0.8 % (0.0-2.0); HEMATOCRIT 31 % (39-51); HEMOGLOBIN 10.5 g/dL (13.5-17.5); LYMPHOCYTES # (AUTO) 2.4 /CMM (0.8-4.8); MEAN CORPUSCULAR HGB CONC 34 g/dl (31.0-36.0); MEAN CORPUSCULAR VOLUME 98 fL (80-96); MONOCYTES % (AUTO) 7.2 % (2.0-12.0); NEUTROPHILS # (AUTO) 9.6 /CMM (1.8-8.9); PLATELET COUNT (AUTO) 573 /CMM (150-450); RED BLOOD CELL COUNT(AUTO) 3.12 MIL/uL (4.5-6.0); WHITE BLOOD COUNT (AUTO) 13.3 K/uL (4.3-11.0)
[2020-08-27 07:16] LABS: ALBUMIN 2.5 g/dL (3.4-5.0); BILIRUBIN,TOTAL 0.3 mg/dL (0.2-1.0); CALCIUM, SERUM 8.4 mg/dL (8.5-10.1); CREATININE 0.6 mg/dL (0.6-1.3); TOTAL PROTEIN, SERUM 6.1 g/dL (6.4-8.2)
--- NOTE | 2020-08-27 07:30 | NUR ---
RN OPENING NOTE PATIENT IN BED, A/OX4, VERBAL WITH HOARSE VOICE, ON ROOM AIR, TOLERATING WELL, NO SOB OR RESP DISTRESS NOTED, SPO2 IS 98%, DENIES PAIN OR DISCOMFORT, AMBULATORY WITH ASSIST, FULL CODE, MECHANICAL SOFT DIET, SITTER AT BED SITE PRESENT, IV LINE ON L AC NOTED, INTACT AND FLUSHED, SAFETY MEASURES IN PLACE BED IN LOWEST POSITION, CALL LIGHT IN REACH, WILL CONT TO MONITOR
[2020-08-27 08:00] VITALS: BP 133/62
[2020-08-27] MEDS: AMOX/CLAVULANATE 875 MG TABLET PO SCH ×2 (08:16→21:08)
[2020-08-27] MEDS: GUAIFENESIN LA 600 MG TABLET.SA PO SCH ×2 (08:16→21:09)
[2020-08-27] MEDS: ENOXAPARIN SODIUM 40 MG/0.4 ML DISP.SYRIN SQ SCH (08:17)
[2020-08-27 08:31] LABS: POTASSIUM 2.7 mmol/L (3.5-5.1)
[2020-08-27] MEDS ORDERED: POTASSIUM CL. PREMIX PERIPHER. 50 ML IV SCH (09:00)
--- NOTE | 2020-08-27 11:03 | NUR ---
patient went to mix chemist, removed his IV line, still in shower, will insert new line
--- NOTE | 2020-08-27 11:18 | NUR ---
NEW LINE STARTED L FA G20
[2020-08-27] MEDS: LOSARTAN POTASSIUM 50 MG TABLET PO SCH ×2 (11:55→21:09)
[2020-08-27] MEDS: SPIRONOLACTONE 25 MG TABLET PO SCH (11:55)
[2020-08-27 12:00] VITALS: BP 125/79
[2020-08-27] MEDS: Potassium Chloride 10 MEQ, LIDOCAINE HCL/PF 1% 1 ML in IV D5W 50 ML IV SCH ×7 (13:03→22:31)
--- NOTE | 2020-08-27 15:08 | NUR ---
Patient want to add family to his contact list [phone] mother Ramila Horvathvy [phone] Mateus Ferguson, the father
[2020-08-27 16:00] VITALS: BP 140/85
[2020-08-27] MEDS: ENSURE ENLIVE 237 ML LIQUID (VANILLA) PO SCH (17:00)
--- NOTE | 2020-08-27 18:29 | NUR ---
RN OPENING NOTE PATIENT IN BED, A/OX4, VERBAL WITH HOARSE VOICE, ON ROOM AIR, TOLERATING WELL, NO SOB OR RESP DISTRESS NOTED, SPO2 IS 98%, DENIES PAIN OR DISCOMFORT, AMBULATORY WITH ASSIST, FULL CODE, MECHANICAL SOFT DIET, SITTER AT BED SITE PRESENT, IV LINE ON L AC NOTED, INTACT AND FLUSHED, SAFETY MEASURES IN PLACE BED IN LOWEST POSITION, CALL LIGHT IN REACH, WILL CONT TO MONITOR Addendum: 08/27/20 at 1831 by Destini Melendez RN WRONG TIME DOCUMENTATION
--- NOTE | 2020-08-27 18:31 | NUR ---
RN CLOSING NOTES PATIENT REMANS IN ROOM, TOLERATING MEDICATIONS WEEL, IV LINE INTACT, EDUCATION REGARDING MEDICATIONS PROVIDED, ARRANGED FAMILY CONVERSATION VIA ZOOM, SITTER PRESENT AT BED SITE, COMFORT NEEDS ATTENDED, SAFETY MEASURES IN PLACE, WILL ENDORSE TO PM SHIFT RN FOR SHARON
--- NOTE | 2020-08-27 19:30 | NUR ---
MS RN NOTES RECEIVED ON BED A/O X4,BREATHING EASY,NO SOB,IV POTASSIUM INFUSING WELL VIA IV PUMP ON LFA,SITE PATENT.SITTER AT BEDSIDE FOR SAFETY,NEEDS ASSIST WITH ADL'S.CALL LIGHT IN REACH,NEEDS ANTICIPATED.
[2020-08-27 20:00] VITALS: BP 140/65
--- NOTE | 2020-08-27 22:24 | NUR ---
MS RN NOTES FEELING ANXIOUS AND ITCHY,MEDICATED WITH ATIVAN 2MG PO,ALONG WITH [id number] PO ORDERED AND PER PATIENT REQUEST.
[2020-08-27] MEDS: diphenhydrAMINE HCL 25 MG CAPSULE PO PRN (22:34)
[2020-08-27] MEDS: LORAZEPAM 1 MG TABLET PO PRN (22:34)
[2020-08-28] MEDS: ALBUTEROL HALF STRENGTH 1.25 MG/3 ML VIAL.NEB NEB SCH ×5 (01:30→19:50)
[2020-08-28] MEDS: IPRATROPIUM NEB FS 0.5 MG/2.5 ML AMPUL.NEB NEB SCH ×5 (01:30→19:50)
[2020-08-28 04:01] VITALS: BP 94/42
--- NOTE | 2020-08-28 06:14 | NUR ---
MS RN NOTES SLEPT WITH INTERVALS,AMBULATE WITH STANDBY ASSIST.MORE ALERT AND CONVERSANT.IN NO ACUTE DISTRESS.SITTER AT BEDSIDE FOR SAFETY,NEEDS ATTENDED.
[2020-08-28 06:45] LABS: CALCIUM, SERUM 8.7 mg/dL (8.5-10.1); CREATININE 0.8 mg/dL (0.6-1.3); POTASSIUM 3.4 mmol/L (3.5-5.1)
[2020-08-28 07:02] LABS: BASOPHILS # (AUTO) 0.1 /CMM (0.0-0.2); BASOPHILS % (AUTO) 0.9 % (0.0-2.0); EOSINOPHILS % (AUTO) 2.3 % (0.0-6.0); HEMATOCRIT 33 % (39-51); HEMOGLOBIN 11.3 g/dL (13.5-17.5); LYMPHOCYTES # (AUTO) 2.6 /CMM (0.8-4.8); LYMPHOCYTES % (AUTO) 18.4 % (20.0-44.0); MEAN CORPUSCULAR HGB CONC 34 g/dl (31.0-36.0); MEAN CORPUSCULAR VOLUME 98 fL (80-96); MONOCYTES # (AUTO) 0.9 /CMM (0.1-1.30); MONOCYTES % (AUTO) 6.3 % (2.0-12.0); NEUTROPHILS # (AUTO) 10.2 /CMM (1.8-8.9); NEUTROPHILS % (AUTO) 72.1 % (43.0-81.0); PLATELET COUNT (AUTO) 748 /CMM (150-450); WHITE BLOOD COUNT (AUTO) 14.1 K/uL (4.3-11.0)
[2020-08-28] MEDS: ENSURE ENLIVE 237 ML LIQUID (VANILLA) PO SCH ×3 (07:57→16:11)
[2020-08-28] MEDS: AMOX/CLAVULANATE 875 MG TABLET PO SCH ×2 (07:57→20:53)
[2020-08-28] MEDS: GUAIFENESIN LA 600 MG TABLET.SA PO SCH ×2 (07:57→20:52)
[2020-08-28] MEDS: SPIRONOLACTONE 25 MG TABLET PO SCH (07:57)
[2020-08-28] MEDS: LOSARTAN POTASSIUM 50 MG TABLET PO SCH ×2 (07:58→20:53)
[2020-08-28 08:00] VITALS: BP 117/44
[2020-08-28] MEDS: ENOXAPARIN SODIUM 40 MG/0.4 ML DISP.SYRIN SQ SCH (08:00)
[2020-08-28] MEDS ORDERED: POTASSIUM CL. PREMIX PERIPHER. 50 ML IV SCH (09:00)
[2020-08-28] MEDS: Potassium Chloride 10 MEQ, LIDOCAINE HCL/PF 1% 1 ML in IV D5W 50 ML IV SCH ×4 (10:34→15:50)
[2020-08-28 13:10] LABS: CHLORIDE,URINE RANDOM 135 mmol/L (55-125); POTASSIUM RNDM,URINE 6 mmol/L (25-125); URINE SODIUM, RANDOM 145 mmol/l (40-220)
[2020-08-28 16:00] VITALS: BP 119/51
--- NOTE | 2020-08-28 19:00 | NUR ---
MS RN OPENING NOTES: RECEIVED PATIENT IN THE BATHROOM.
--- NOTE | 2020-08-28 19:10 | NUR ---
MS RN OPENING NOTES: PATIENT IS RESTING IN BED, AWAKE, A/O X4. WITH THE SITTER AT THE BEDSIDE. NO S/S OF DISTRESS NOTED. NO COMPLAIN OF PAIN. CALL LIGHT WITHIN REACH. BED IN LOWEST AND LOCKED POSITION.PATIENT IS CALM, AND COMFORTABLE, HAVING A GOOD CONVERSATIONS WITH THE SITTER.
[2020-08-28 20:00] VITALS: BP 114/55
[2020-08-28] MEDS: ACETAMINOPHEN 325 MG TABLET PO PRN (20:53)
[2020-08-28] MEDS: diphenhydrAMINE HCL 25 MG CAPSULE PO PRN (20:53)
[2020-08-28] MEDS: LORAZEPAM 1 MG TABLET PO PRN (20:53)
[2020-08-29] VITALS: BP 127/71
[2020-08-29] MEDS: IPRATROPIUM NEB FS 0.5 MG/2.5 ML AMPUL.NEB NEB SCH ×3 (01:16→12:49)
[2020-08-29] MEDS: ALBUTEROL HALF STRENGTH 1.25 MG/3 ML VIAL.NEB NEB SCH ×3 (01:16→12:49)
[2020-08-29 06:41] VITALS: BP 120/66
--- NOTE | 2020-08-29 06:45 | NUR ---
MS RN CLOSING NOTES: PATIENT IS SITTING IN THE CHAIR IN THE HALLWAY, WITH THE SITTER, AWAKE, NO S/S OF DISTRESS NOTED. NO COMPLAIN OF PAIN. AMBULATORY WITH THE WALKER, STEADY. PATIENT IS UPSET BECAUSE ACCORDING TO THE PATIENT AND THE SITTER NOBODY CAME YET TO DRAW HIS BLOOD THIS MORNING. AND ACCORDING TO THE VOCATIONAL NURSE LVN, PATIENT REFUSED THE BLOOD DRAW AND SHE WILL COME BACK LATER. CALLED THE LAB AND RELAYED WHAT HAPPENED.
[2020-08-29 07:40] LABS: BASOPHILS # (AUTO) 0.2 /CMM (0.0-0.2); BASOPHILS % (AUTO) 0.9 % (0.0-2.0); EOSINOPHILS % (AUTO) 2.1 % (0.0-6.0); HEMATOCRIT 37 % (39-51); HEMOGLOBIN 12.5 g/dL (13.5-17.5); LYMPHOCYTES # (AUTO) 2.7 /CMM (0.8-4.8); LYMPHOCYTES % (AUTO) 14.9 % (20.0-44.0); MEAN CORPUSCULAR HGB CONC 34 g/dl (31.0-36.0); MEAN CORPUSCULAR VOLUME 98 fL (80-96); MONOCYTES # (AUTO) 1.3 /CMM (0.1-1.30); MONOCYTES % (AUTO) 7.3 % (2.0-12.0); NEUTROPHILS # (AUTO) 13.4 /CMM (1.8-8.9); NEUTROPHILS % (AUTO) 74.8 % (43.0-81.0); WHITE BLOOD COUNT (AUTO) 17.9 K/uL (4.3-11.0)
[2020-08-29 08:00] VITALS: BP 102/46
[2020-08-29 08:00] LABS: CALCIUM, SERUM 9.7 mg/dL (8.5-10.1); CREATININE 0.9 mg/dL (0.6-1.3); POTASSIUM 5.5 mmol/L (3.5-5.1)
--- NOTE | 2020-08-29 08:00 | NUR ---
MS RN OPENING NOTES Received Patient resting in bed. A/O x 4. VS stable with no acute distress. Breathing even and unlabored on room air with no respiratory distress. Patient upset and states that he wants to go home. Provided comfort measures. 20g PIV on LFA intact, patent and flushing well. Safety precautions in place. Bed locked and set to lowest position with side rails x 2 up. All needs rendered at this time. Call light within reach. Sitter at bedside. Will continue to monitor.
[2020-08-29 08:02] LABS: PLATELET COUNT (AUTO) 953 /CMM (150-450)
[2020-08-29] MEDS: GUAIFENESIN LA 600 MG TABLET.SA PO SCH (08:53)
[2020-08-29] MEDS: AMOX/CLAVULANATE 875 MG TABLET PO SCH (08:53)
[2020-08-29] MEDS: SPIRONOLACTONE 25 MG TABLET PO SCH (08:53)
[2020-08-29] MEDS: LOSARTAN POTASSIUM 50 MG TABLET PO SCH (08:55)
[2020-08-29] MEDS: ENSURE ENLIVE 237 ML LIQUID (VANILLA) PO SCH ×3 (08:56→17:54)
[2020-08-29] MEDS: ENOXAPARIN SODIUM 40 MG/0.4 ML DISP.SYRIN SQ SCH (09:00)
[2020-08-29] MEDS ORDERED: FUROSEMIDE 40 MG TABLET PO ONE (09:30)
[2020-08-29 15:04] LABS: CALCIUM, SERUM 9.1 mg/dL (8.5-10.1); CREATININE 0.8 mg/dL (0.6-1.3); POTASSIUM 4.1 mmol/L (3.5-5.1)
[2020-08-29 16:00] VITALS: BP 123/56
--- NOTE | 2020-08-29 18:30 | NUR ---
MS PCB DESIGN ENGINEER NOTES Patient discharged for home at this time. VS stable with no acute distress. Breathing even and unlabored on room air with no respiratory distress. Denies pain. No signs and symptoms of pain. Skin assessment pictures in chart. Discharge orders reviewed with Patient. Patient verbalized understanding. Patient will follow up with PCP in 3-5 days and follow up with packager head and student financial aid manager as scheduled. All belongings with Patient. Escorted Patient to the Lobby for safety. Patient picked up by Mateus (father).
[2020-09-01 14:08] LABS: OSMOLALITY,URINE 466 mOS/kg (340-1090)
== END 2020-08-29 18:42 | disposition home or self-care (01) | DRG 917 ==
LOC: ER 02:59 → ICU 06:44 → EDBD 06:44 → MEDSG1 08-25 12:24
PROVIDERS: ADMIT Internal Medicine; ATTEND Family Medicine
PROC: 0BH17EZ Insertion of Endotracheal Airway into Trachea, Via Natural or Artificial Opening (ICD-10-PCS; principal; 2020-08-16)
PROC: 5A1955Z Respiratory Ventilation, Greater than 96 Consecutive Hours (ICD-10-PCS; 2020-08-16)
DX: T41.291A Poisoning by other general anesthetics, accidental (unintentional), initial encounter (principal); J96.01 Acute respiratory failure with hypoxia; G92 Toxic encephalopathy; E43 Unspecified severe protein-calorie malnutrition; J69.0 Pneumonitis due to inhalation of food and vomit; K72.00 Acute and subacute hepatic failure without coma; I21.A1 Myocardial infarction type 2; R40.2342 Coma scale, best motor response, flexion withdrawal, at arrival to emergency department; R40.2122 Coma scale, eyes open, to pain, at arrival to emergency department; R40.2212 Coma scale, best verbal response, none, at arrival to emergency department; M62.82 Rhabdomyolysis; A04.72 Enterocolitis due to Clostridium difficile, not specified as recurrent; I82.622 Acute embolism and thrombosis of deep veins of left upper extremity; Y92.89 Other specified places as the place of occurrence of the external cause; E87.6 Hypokalemia; D64.9 Anemia, unspecified; R74.01 Elevation of levels of liver transaminase levels; E88.09 Other disorders of plasma-protein metabolism, not elsewhere classified; F19.188 Other psychoactive substance abuse with other psychoactive substance-induced disorder; Z68.23 Body mass index [BMI] 23.0-23.9, adult
CPT/HCPCS: 31720; 36415; 36600; 70450-TC; 71045-TC; 72125-TC; 80048-TC; 80053-TC; 80061-TC; 80076-TC; 80202-TC; 80305; 81000-TC; 82140-TC; 82436-TC; 82550-TC; 82553; 82803-TC; 83605-TC; 83690-TC; 83735-TC; 83935-TC; 84100-TC; 84133-TC; 84300-TC; 84439-TC; 84478-TC; 84484-TC; 85025-TC; 85730-TC; 87040-TC; 87081-TC; 92521; 92526; 93307-TC; 93971-TC; 94002-TC; 94003-TC; 94760-TC; 94762-TC; 94799-TC; 97110-TC; 97116-TC; 97530-TC; 99082-TC; A9563; G0378; G0480; G0500; J1200; J1630; J1650; J2060; J2250; J2270; J2405; J2543; J3010; J3370; J3480; J3490; J7030; J7040; J7050; J7060; Q0162; Q0163